=== PATIENT | female | born 1970 | race American Indian/Alaskan Native ===

== ENCOUNTER 2016-11-25 17:15 | Emergency (ER) | payer MEDICAID, OTHER ==
[2016-11-25] MEDS ORDERED: Sodium Chloride 0.9% 2.5 ML Syringe FLUSH PRN (17:26)
[2016-11-25] MEDS ORDERED: Sodium Chloride 0.9% 10 ML Syringe FLUSH PRN (17:26)
[2016-11-25] MEDS ORDERED: Sodium Chloride 0.9% 1,000 ML IV ONE (17:27)
[2016-11-25] MEDS ORDERED: Famotidine 20 MG/2 ML SDV IVPUSH ONE (17:34)
--- NOTE | 2016-11-25 17:38 | EDM.PDOC ---
ED HPI GI/ABDOMINAL - General Chief Complaint: Abdominal Pain Stated Complaint: ABDOMINAL PAIN Time Seen by Provider: 11/25/16 17:19 Source of Information: Reports: Patient History Limitations: Reports: No limitations - History of Present Illness INITIAL COMMENTS - FREE TEXT/NARRATIVE: History of present illness: [] Patient has had 4 days of intermittent abdominal pain in the right upper quadrant that is cramping and nonradiating. Patient started having chills today. She denies any nausea, vomiting, diarrhea or constipation. Patient has not noticed anything that makes pain worse or better such as food. Denies any back pain problems urinating or blood in her urine. Review of systems: As per history of present illness and below otherwise all systems reviewed and negative. Past medical history: As per history of present illness and as reviewed below otherwise noncontributory. Surgical history: As per history of present illness and as reviewed below otherwise noncontributory. Social history: No reported history of drug or alcohol abuse. Family history: As per history of present illness and as reviewed below otherwise noncontributory. Physical exam: General: Well developed, well nourished in NAD HEENT: Atraumatic, normocephalic, pupils reactive, negative for conjunctival pallor or scleral icterus, mucous membranes moist, throat clear, neck supple, nontender, trachea midline. Lungs: Clear to auscultation, breath sounds equal bilaterally, chest nontender. Heart: S1S2, regular, negative for clicks, rubs, or JVD. Abdomen: Soft, nondistended, nontender. Negative for masses or hepatosplenomegaly. Negative for costovertebral tenderness. Pelvis: Stable nontender. Genitourinary: Deferred. Rectal: Deferred. Extremities: Atraumatic, negative for cords or calf pain. Neurovascular unremarkable. Neuro: Awake, alert, oriented. Cranial nerves II through XII unremarkable. Cerebellum unremarkable. Motor and sensory unremarkable throughout. Exam nonfocal. Diagnostics: [] Labs urine: all normal Therapeutics: [] IV hydration and Pepcid IV. Impression: [] GERD Plan: [] Take Prilosec twice a day and followup PMD return here if any symptoms change or worsen the Definitive disposition and diagnosis as appropriate pending reevaluation and review of above. - Related Data Allergies/ADRs: Allergies Allergy/AdvReac Type Severity Reaction Status Date / Time amoxicillin Allergy Rash Verified 11/25/16 17:26 hydrocodone Allergy Rash Verified 11/25/16 17:26 Home Meds: Home Meds . [No Known Home Meds] 11/25/16 [History] ED ROS GENERAL - Review of Systems Review Of Systems: See Below (See history of present illness) ED EXAM, GI/ABD - Physical Exam Exam: See Below (See history of present illness) Course - Vital Signs Last Recorded V/S: Last Vital Signs Temp 37.2 C 11/25/16 18:21 Pulse 81 11/25/16 18:21 Resp 22 H 11/25/16 17:26 BP 136/85 11/25/16 18:21 Pulse Ox 96 11/25/16 17:26 - Orders/Labs/Meds Orders: Active Orders 24 hr Category Date Time Status Abdomen Ltd [US] Stat Exams 11/25/16 18:30 Stop Req Sodium Chloride 0.9% [Saline Flush] Med 11/25/16 17:26 Active 10 ml FLUSH ASDIRECTED PRN Sodium Chloride 0.9% [Saline Flush] Med 11/25/16 17:26 Active 2.5 ml FLUSH ASDIRECTED PRN Peripheral IV Insertion Adult [OM.PC] Stat Oth 11/25/16 17:26 Ordered Medication Orders Sodium Chloride (Saline Flush) 10 ml FLUSH ASDIRECTED PRN PRN Reason: Keep Vein Open Sodium Chloride (Saline Flush) 2.5 ml FLUSH ASDIRECTED PRN PRN Reason: Keep Vein Open Labs: Laboratory Tests 11/25/16 11/25/16 11/25/16 Range/Units 17:45 17:45 18:00 WBC 10.38 (4.0-11.0) K/uL RBC 4.65 (4.30-5.90) M/uL Hgb 13.3 (12.0-16.0) g/dL Hct 39.7 (36.0-46.0) % MCV 85.4 (80.0-98.0) fL MCH 28.6 (27.0-32.0) pg MCHC 33.5 (31.0-37.0) g/dL RDW Std Deviation 43.1 (28.0-62.0) fl RDW Coeff of Omid 14 (11.0-15.0) % Plt Count 348 (150-400) K/uL MPV 10.10 (7.40-12.00) fL Neut % (Auto) 55.9 (48.0-80.0) % Lymph % (Auto) 30.5 (16.0-40.0) % Furn[place] % (Auto) 7.6 (0.0-15.0) % Eos % (Auto) 5.6 (0.0-7.0) % Baso % (Auto) 0.4 (0.0-1.5) % Neut # 5.8 H (1.4-5.7) K/uL Lymph # 3.2 H (0.6-2.4) K/uL Furnas # 0.8 (0.0-0.8) K/uL Eos # 0.6 (0.0-0.7) K/uL Baso # 0.0 (0.0-0.1) K/uL Nucleated RBC % 0.0 /100WBC Nucleated RBCs # 0 K/uL Sodium 139 (136-146) mmol/L Potassium 4.0 (3.5-5.1) mmol/L Chloride 109 (98-110) mmol/L Carbon Dioxide 21 (21-31) mmol/L BUN 13 (6.0-23.0) mg/dL Creatinine 0.7 (0.6-1.5) mg/dL Est Cr Clr Drug Dosing 89.48 mL/min Estimated GFR (MDRD) > 60.0 ml/min Glucose 88 (60-110) mg/dL Calcium 9.0 (8.8-10.8) mg/dL Total Bilirubin 0.5 (0.1-1.5) mg/dL AST 33 (5-40) IU/L ALT 52 (8-54) IU/L Alkaline Phosphatase 83 (40-150) Total Protein 7.5 (6.0-8.0) g/dL Albumin 3.7 (3.5-5.0) g/dL Globulin 3.8 H (2.0-3.5) g/dL Albumin/Globulin Ratio 1.0 L (1.3-2.8) Lipase 51 (7-80) U/L Urine Color Urine Appearance Urine pH (5.0-8.0) Ur Specific [place] (1.001-1.035) Urine Protein (NEGATIVE) mg/dL Urine Glucose (UA) (NEGATIVE) mg/dL Urine Ketones (NEGATIVE) mg/dL Urine Occult Blood (NEGATIVE) Urine Nitrite (NEGATIVE) Urine Bilirubin (NEGATIVE) Urine Urobilinogen (<2.0) EU/dL Ur Leukocyte Esterase (NEGATIVE) Urine RBC (0-2/HPF) Urine WBC (0-5/HPF) Ur Epithelial Cells (NONE-FEW) Urine Bacteria (NEGATIVE) Urine HCG, Qual NEGATIVE (NEGATIVE) 11/25/16 Range/Units 18:00 WBC (4.0-11.0) K/uL RBC (4.30-5.90) M/uL Hgb (12.0-16.0) g/dL Hct (36.0-46.0) % MCV (80.0-98.0) fL MCH (27.0-32.0) pg MCHC (31.0-37.0) g/dL RDW Std Deviation (28.0-62.0) fl RDW Coeff of Omid (11.0-15.0) % Plt Count (150-400) K/uL MPV (7.40-12.00) fL Neut % (Auto) (48.0-80.0) % Lymph % (Auto) (16.0-40.0) % Furn[place] % (Auto) (0.0-15.0) % Eos % (Auto) (0.0-7.0) % Baso % (Auto) (0.0-1.5) % Neut # (1.4-5.7) K/uL Lymph # (0.6-2.4) K/uL Furnas # (0.0-0.8) K/uL Eos # (0.0-0.7) K/uL Baso # (0.0-0.1) K/uL Nucleated RBC % /100WBC Nucleated RBCs # K/uL Sodium (136-146) mmol/L Potassium (3.5-5.1) mmol/L Chloride (98-110) mmol/L Carbon Dioxide (21-31) mmol/L BUN (6.0-23.0) mg/dL Creatinine (0.6-1.5) mg/dL Est Cr Clr Drug Dosing mL/min Estimated GFR (MDRD) ml/min Glucose (60-110) mg/dL Calcium (8.8-10.8) mg/dL Total Bilirubin (0.1-1.5) mg/dL AST (5-40) IU/L ALT (8-54) IU/L Alkaline Phosphatase (40-150) Total Protein (6.0-8.0) g/dL Albumin (3.5-5.0) g/dL Globulin (2.0-3.5) g/dL Albumin/Globulin Ratio (1.3-2.8) Lipase (7-80) U/L Urine Color YELLOW Urine Appearance CLEAR Urine pH 5.5 (5.0-8.0) Ur Specific [place] 1.025 (1.001-1.035) Urine Protein NEGATIVE (NEGATIVE) mg/dL Urine Glucose (UA) NEGATIVE (NEGATIVE) mg/dL Urine Ketones NEGATIVE (NEGATIVE) mg/dL Urine Occult Blood TRACE-INTACT (NEGATIVE) Urine Nitrite NEGATIVE (NEGATIVE) Urine Bilirubin NEGATIVE (NEGATIVE) Urine Urobilinogen 0.2 (<2.0) EU/dL Ur Leukocyte Esterase NEGATIVE (NEGATIVE) Urine RBC 0-2 (0-2/HPF) Urine WBC 2-4 (0-5/HPF) Ur Epithelial Cells FEW (NONE-FEW) Urine Bacteria FEW (NEGATIVE) Urine HCG, Qual (NEGATIVE) Meds: Medications Generic Name Dose Route Start Last Admin Trade Name Frezen PRN Reason Stop Dose Admin Sodium Chloride 10 ml 11/25/16 17:26 Saline Flush FLUSH ASDIRECTED PRN Keep Vein Open Sodium Chloride 2.5 ml 11/25/16 17:26 Saline Flush FLUSH ASDIRECTED PRN Keep Vein Open Discontinued Medications Generic Name Dose Route Start Last Admin Trade Name Aaliyah PRN Reason Stop Dose Admin Famotidine 20 mg 11/25/16 17:34 11/25/16 17:55 Pepcid IVPUSH 11/25/16 17:35 20 mg ONETIME ONE Administration Sodium Chloride 1,000 mls @ 999 mls/hr 11/25/16 17:27 11/25/16 18:12 Normal Saline IV 11/25/16 18:27 999 mls/hr .Bolus ONE Administration Departure - Departure Time of Disposition: 18:37 Disposition: Home, Self-Care 01 Condition: good Clinical Impression: GERD (gastroesophageal reflux disease) Qualifiers: Esophagitis presence: esophagitis presence not specified Qualified Code(s): K21.9 - Gastro-esophageal reflux disease without esophagitis Forms: ED Department Discharge Additional Instructions: The following information is given to patients seen in the emergency department who are being discharged to home. This information is to outline your options for follow-up care. We provide all patients seen in our emergency department with a follow-up referral. The need for follow-up, as well as the timing and circumstances, are variable depending upon the specifics of your emergency department visit. If you don't have a primary care physician on staff, we will provide you with a referral. We always advise you to contact your personal physician following an emergency department visit to inform them of the circumstance of the visit and for follow-up with them and/or the need for any referrals to a consulting specialist. The emergency department will also refer you to a specialist when appropriate. This referral assures that you have the opportunity for follow-up care with a specialist. All of these measure are taken in an effort to provide you with optimal care, which includes your follow-up. Under all circumstances we always encourage you to contact your private physician who remains a resource for coordinating your care. When calling for follow-up care, please make the office aware that this follow-up is from your recent emergency room visit. If for any reason you are refused follow-up, please contact the [facility] Emergency Department at and asked to speak to the emergency department charge nurseOrlando Copeland twice a day [facility] [address] [place] [id number] - My Orders Last 24 Hours: My Active Orders 11/25/16 17:26 Sodium Chloride 0.9% [Saline Flush] 10 ml FLUSH ASDIRECTED PRN Sodium Chloride 0.9% [Saline Flush] 2.5 ml FLUSH ASDIRECTED PRN Peripheral IV Insertion Adult [OM.PC] Stat 11/25/16 18:30 Abdomen Ltd [US] Stat - Assessment/Plan Last 24 Hours: My Active Orders 11/25/16 17:26 Sodium Chloride 0.9% [Saline Flush] 10 ml FLUSH ASDIRECTED PRN Sodium Chloride 0.9% [Saline Flush] 2.5 ml FLUSH ASDIRECTED PRN Peripheral IV Insertion Adult [OM.PC] Stat 11/25/16 18:30 Abdomen Ltd [US] Stat
[2016-11-25 18:32] LABS: CHLORIDE,CL 109 mmol/L (98-110); SODIUM,NA 139 mmol/L (136-146)
[2016-11-25 19:03] VITALS: BP 134/70
== END 2016-11-25 18:59 | disposition home or self-care (01) ==
LOC: MW.ED 17:15
DX: K21.9 Gastro-esophageal reflux disease without esophagitis (principal); Z88.0 Allergy status to penicillin; Z88.5 Allergy status to narcotic agent
CPT/HCPCS: 36415; 80053; 81001; 81025; 83690; 85025; 96361; 96374; 99284; J7040

== ENCOUNTER 2018-04-28 15:04 | Emergency (ER) | payer MEDICAID, OTHER ==
--- NOTE | 2018-04-28 15:40 | EDM.PDOC ---
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 Past medical history: As per history of present illness and as reviewed below otherwise noncontributory. Surgical history: As per history of present illness and as reviewed below otherwise noncontributory. Social history: No reported history of drug or alcohol abuse. Family history: As per history of present illness and as reviewed below otherwise noncontributory. Physical exam: HEENT: Atraumatic, normocephalic, pupils reactive, negative for conjunctival pallor or scleral icterus, mucous membranes moist, throat clear, neck supple, nontender, trachea midline. Lungs: Clear to auscultation, breath sounds equal bilaterally, chest nontender. Heart: S1S2, regular, negative for clicks, rubs, or JVD. Abdomen: Soft, nondistended, nontender. Negative for masses or hepatosplenomegaly. Negative for costovertebral tenderness. Pelvis: Stable nontender. Genitourinary: Deferred. Rectal: Deferred. Extremities: Atraumatic, negative for cords or calf pain. Neurovascular unremarkable. Neuro: Awake, alert, oriented. Cranial nerves II through XII unremarkable. Cerebellum unremarkable. Motor and sensory unremarkable throughout. Exam nonfocal. Diagnostics: []Clinical Therapeutics: []Splint rest ice ibuprofen Impression: [] carpal tunnel syndrome on the left Definitive disposition and diagnosis as appropriate pending reevaluation and review of above. left elbow, left lower leg Pain Score (Numeric/FACES): 6 - Related Data Allergies Allergy/AdvReac Type Severity Reaction Status Date / Time amoxicillin Allergy Rash Verified 04/28/18 15:22 hydrocodone Allergy Rash Verified 04/28/18 15:22 Home Meds: Home Meds . 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: - Infectious Disease History Infectious Disease History: Reports: Hepatitis C - Past Surgical History HEENT Surgical History: Reports: Tonsillectomy GI Surgical History: Reports: Other (See Below) Female Surgical History: Reports: Hysterectomy Social & Family History - Family History Family Medical History: Noncontributory Musculoskeletal: Reports: RA - Tobacco Use Smoking Status *Q: Current Every Day Smoker Years of Tobacco use: 15 Packs/Tins Daily: 1 - Caffeine Use Caffeine Use: Reports: Coffee, Soda - Recreational Drug Use Recreational Drug Use: Yes Drug Use in Last 12 Months: Yes Recreational Drug Type: Reports: Marijuana/Hashish Recreational Drug Use Frequency: Monthly Review of Systems - Review of Systems Review Of Systems: See Below ED EXAM, GENERAL - Physical Exam Exam: See Below Course - Vital Signs Last Recorded V/S: Last Vital Signs Temp 97.1 F 04/28/18 15:19 Pulse 79 04/28/18 15:19 Resp 16 04/28/18 15:19 BP 151/95 H 04/28/18 15:19 Pulse Ox 96 04/28/18 15:19 Departure - Departure Time of Disposition: 15:38 Disposition: Home, Self-Care 01 Condition: Good Clinical Impression: Carpal tunnel syndrome - Discharge Information Referrals: PCP,None [Primary Care Provider] - Additional Instructions: Splint Medication as prescribed Return if symptoms persist or worsen Follow-up with Anisha amaral md if symptoms continue despite treatment [facility] - Plastic Surgery [address], [address] [place] [address] The following information is given to patients seen in the emergency department who are being discharged to home. This information is to outline your options for follow-up care. We provide all patients seen in our emergency department with a follow-up referral. The need for follow-up, as well as the timing and circumstances, are variable depending upon the specifics of your emergency department visit. If you don't have a primary care physician on staff, we will provide you with a referral. We always advise you to contact your personal physician following an emergency department visit to inform them of the circumstance of the visit and for follow-up with them and/or the need for any referrals to a consulting specialist. The emergency department will also refer you to a specialist when appropriate. This referral assures that you have the opportunity for follow-up care with a specialist. All of these measure are taken in an effort to provide you with optimal care, which includes your follow-up. Under all circumstances we always encourage you to contact your private physician who remains a resource for coordinating your care. When calling for follow-up care, please make the office aware that this follow-up is from your recent emergency room visit. If for any reason you are refused follow-up, please contact the [facility] emergency department at and asked to speak to the emergency department charge nurse.
[2018-04-28 16:37] VITALS: BP 143/88
== END 2018-04-28 16:30 | disposition home or self-care (01) ==
LOC: MW.ED 15:04
DX: G56.02 Carpal tunnel syndrome, left upper limb (principal)
CPT/HCPCS: 99283

== ENCOUNTER 2019-06-21 12:20 | Observation (INO) | payer MEDICAID, OTHER ==
[2019-06-21] MEDS ORDERED: Sodium Chloride 0.9% 2.5 ML Syringe FLUSH PRN (12:23)
[2019-06-21] MEDS ORDERED: Sodium Chloride 0.9% 10 ML Syringe FLUSH PRN (12:23)
[2019-06-21] MEDS ORDERED: Aspirin 81 MG Tab.Chew PO ONE (12:23)
[2019-06-21] MEDS ORDERED: Sodium Chloride 0.9% 1,000 ML IV ONE (12:31)
--- NOTE | 2019-06-21 12:37 | EDM.PDOC ---
ED HPI GENERAL MEDICAL PROBLEM - General Chief Complaint: Chest Pain Stated Complaint: CHEST PAIN Time Seen by Provider: 06/21/19 12:24 Source of Information: Reports: Patient History Limitations: Reports: No Limitations - History of Present Illness INITIAL COMMENTS - FREE TEXT/NARRATIVE: HISTORY AND PHYSICAL: History of present illness: Patient is a 48-year-old female presenting along to the emergency room for chief complaint chest pain. Patient states that she's had chest pain for the "past couple days", however she states "last night it started getting worse". She states she is experiencing "chest pain that radiates into my right shoulder and right jaw". She rates her pain at a 6 out of 10 describing it as "throbbing ". She states she is also been having "sweats, and faster heart beat". She states she does have tingling in her right big toe and subjective fever, chills. Patient denies any headache, change in vision, syncope or near syncope. Denies any chest pain, back pain, shortness of breath or cough. Denies any abdominal pain, nausea, vomiting, diarrhea, constipation or dysuria. Has not noted any blood in urine or stool. Patient has been eating and drinking appropriately. Patient does not have any personal history of heart disease, although states it runs in her family. She states that her biological sister did of a heart attack at the age of 34. She is a pack per day smoker over the past +20 years. Review of systems: As per history of present illness and below otherwise all systems reviewed and negative. Past medical history: As per history of present illness and as reviewed below otherwise noncontributory. Surgical history: As per history of present illness and as reviewed below otherwise noncontributory. Social history: See social history for further information Family history: As per history of present illness and as reviewed below otherwise noncontributory. Physical exam: General: Well-developed and well-nourished 48-year-old female. Alert and oriented. Nontoxic appearing and in no acute distress. No signs have been reviewed by me. HEENT: Atraumatic, normocephalic, pupils equal and reactive bilaterally, negative for conjunctival pallor or scleral icterus, mucous membranes moist, TMs normal bilaterally, throat clear, neck supple, nontender, trachea midline. No drooling or trismus noted. No meningeal signs. No hot potato voice noted. Lungs: Clear to auscultation, breath sounds equal bilaterally, chest nontender. Heart: S1S2, regular rate and rhythm without overt murmur Abdomen: Soft, nondistended, nontender. Negative for masses or hepatosplenomegaly. Negative for costovertebral tenderness. Pelvis: Stable nontender. Skin: Intact, warm, dry. No lesions or rashes noted. Extremities: Atraumatic, moves all extremities per self without difficulty or deficits, negative for cords or calf pain. Neurovascular unremarkable. Neuro: Awake, alert, oriented. Cranial nerves II through XII unremarkable. Cerebellum unremarkable. Motor and sensory unremarkable throughout. Exam nonfocal. Notes: Lab work is unremarkable. No significant findings on EKG or chest x-ray. Patient did get relief with the nitroglycerin, although this did drop her pressure. She received IV fluids. Vital signs remain stable. Due to her to pull risk factors did offer her admission. She states she would like to stay for observation. Dr. Lujan was consulted on this case is agreeable as well. Diagnostics: CBC, CMP, troponin, EKG, chest x-ray, TSH Therapeutics: IV fluid, aspirin, nitroglycerin, morphine Impression: Chest pain rule out [facility] Plan: Observation admission with telemetry Definitive disposition and diagnosis as appropriate pending reevaluation and review of above. right neck Pain Score (Numeric/FACES): 5 - Related Data Allergies Allergy/AdvReac Type Severity Reaction Status Date / Time amoxicillin Allergy Rash Verified 06/21/19 12:22 hydrocodone Allergy Rash Verified 06/21/19 12:22 Home Meds: Home Meds . 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: Neurological History: Reports: Seizure Other Neuro History: PT WITH HISTORY OF EPILEPSY BUT TOOK SELF OFF MEDS - Infectious Disease History Infectious Disease History: Reports: Hepatitis C - Past Surgical History HEENT Surgical History: Reports: Tonsillectomy GI Surgical History: Reports: Other (See Below) Female Surgical History: Reports: Hysterectomy Social & Family History - Family History Family Medical History: Noncontributory Musculoskeletal: Reports: RA - Tobacco Use Smoking Status *Q: Current Every Day Smoker Years of Tobacco use: 26 Packs/Tins Daily: 1.5 - Caffeine Use Caffeine Use: Reports: Coffee, Soda - Recreational Drug Use Recreational Drug Use: No ED ROS GENERAL - Review of Systems Review Of Systems: ROS reveals no pertinent complaints other than HPI. ED EXAM, GENERAL - Physical Exam Exam: See Below (See dictation) Course - Vital Signs Last Recorded V/S: Last Vital Signs Temp 96.2 F 06/21/19 12:24 Pulse 84 06/21/19 13:43 Resp 18 06/21/19 13:43 BP 112/76 06/21/19 13:43 Pulse Ox 98 06/21/19 13:43 - Orders/Labs/Meds Orders: Active Orders 24 hr Category Date Time Status EKG Documentation Completion [RC] STAT Care 06/21/19 12:23 Active Nitroglycerin [Nitrostat] Med 06/21/19 12:31 Active 0.4 mg SL Q5M PRN Sodium Chloride 0.9% [Normal Saline] 1,000 ml Med 06/21/19 12:31 Active IV STAT Sodium Chloride 0.9% [Saline Flush] Med 06/21/19 12:23 Active 10 ml FLUSH ASDIRECTED PRN Sodium Chloride 0.9% [Saline Flush] Med 06/21/19 12:23 Active 2.5 ml FLUSH ASDIRECTED PRN Saline Lock Insert [OM.PC] Stat Oth 06/21/19 12:23 Ordered Medication Orders Sodium Chloride (Normal Saline) 1,000 mls @ 125 mls/hr IV STAT ONE Stop: 06/21/19 20:30 Last Admin: 06/21/19 12:49 Dose: 125 mls/hr Nitroglycerin (Nitrostat) 0.4 mg SL Q5M PRN PRN Reason: Chest Pain Last Admin: 06/21/19 12:53 Dose: 0.4 mg Admin: 06/21/19 12:48 Dose: 0.4 mg Sodium Chloride (Saline Flush) 10 ml FLUSH ASDIRECTED PRN PRN Reason: Keep Vein Open Last Admin: 06/21/19 12:47 Dose: 10 ml Sodium Chloride (Saline Flush) 2.5 ml FLUSH ASDIRECTED PRN PRN Reason: Keep Vein Open Last Admin: 06/21/19 12:47 Dose: 2.5 ml Labs: Laboratory Tests 06/21/19 06/21/19 Range/Units 12:20 12:20 WBC 7.43 (4.0-11.0) K/uL RBC 4.99 (4.30-5.90) M/uL Hgb 14.8 (12.0-16.0) g/dL Hct 44.0 (36.0-46.0) % MCV 88.2 (80.0-98.0) fL MCH 29.7 (27.0-32.0) pg MCHC 33.6 (31.0-37.0) g/dL RDW Std Deviation 43.0 (28.0-62.0) fl RDW Coeff of Omid 13 (11.0-15.0) % Plt Count 345 (150-400) K/uL MPV 10.30 (7.40-12.00) fL Neut % (Auto) 49.4 (48.0-80.0) % Lymph % (Auto) 34.7 (16.0-40.0) % Marshall % (Auto) 10.1 (0.0-15.0) % Eos % (Auto) 5.5 (0.0-7.0) % Baso % (Auto) 0.3 (0.0-1.5) % Neut # (Auto) 3.7 (1.4-5.7) K/uL Lymph # (Auto) 2.6 H (0.6-2.4) K/uL Marshall # (Auto) 0.8 (0.0-0.8) K/uL Eos # (Auto) 0.4 (0.0-0.7) K/uL Baso # (Auto) 0.0 (0.0-0.1) K/uL Nucleated RBC % 0.0 /100WBC Nucleated RBCs # 0 K/uL Sodium 138 (136-145) mmol/L Potassium 4.3 (3.5-5.1) mmol/L Chloride 102 (98-107) mmol/L Carbon Dioxide 26.0 (21.0-32.0) mmol/L BUN 19 H (7.0-18.0) mg/dL Creatinine 0.7 (0.6-1.0) mg/dL Est Cr Clr Drug Dosing 86.72 mL/min Estimated GFR (MDRD) > 60.0 ml/min Glucose 129 H (74-106) mg/dL Calcium 9.0 (8.5-10.1) mg/dL Total Bilirubin 0.4 (0.2-1.0) mg/dL AST 25 (15-37) IU/L ALT 53 (14-63) IU/L Alkaline Phosphatase 90 (46-116) U/L Troponin I < 0.050 (0.000-0.056) ng/mL Total Protein 7.9 (6.4-8.2) g/dL Albumin 3.6 (3.4-5.0) g/dL Globulin 4.3 H (2.6-4.0) g/dL Albumin/Globulin Ratio 0.8 L (0.9-1.6) TSH 3rd Generation 2.50 (0.36-3.74) uIU/mL Meds: Medications Generic Name Dose Route Start Last Admin Trade Name Freq PRN Reason Stop Dose Admin Sodium Chloride 1,000 mls @ 125 mls/hr 06/21/19 12:31 06/21/19 12:49 Normal Saline IV 06/21/19 20:30 125 mls/hr STAT ONE Administration Nitroglycerin 0.4 mg 06/21/19 12:31 06/21/19 12:53 Nitrostat SL 0.4 mg Q5M PRN Administration Chest Pain Sodium Chloride 10 ml 06/21/19 12:23 06/21/19 12:47 Saline Flush FLUSH 10 ml ASDIRECTED PRN Administration Keep Vein Open Sodium Chloride 2.5 ml 06/21/19 12:23 06/21/19 12:47 Saline Flush FLUSH 2.5 ml ASDIRECTED PRN Administration Keep Vein Open Discontinued Medications Generic Name Dose Route Start Last Admin Trade Name Freq PRN Reason Stop Dose Admin Aspirin 324 mg 06/21/19 12:23 06/21/19 12:46 Aspirin PO 06/21/19 12:24 324 mg ONETIME ONE Administration Ketorolac Tromethamine 30 mg 06/21/19 13:02 06/21/19 13:39 Toradol IVPUSH 06/21/19 13:03 30 mg ONETIME ONE Administration Departure - Departure Time of Disposition: 13:49 Disposition: Refer to Observation Clinical Impression: Chest pain, rule out acute myocardial infarction Forms: ED Department Discharge - My Orders Last 24 Hours: My Active Orders 06/21/19 12:23 EKG Documentation Completion [RC] STAT Sodium Chloride 0.9% [Saline Flush] 10 ml FLUSH ASDIRECTED PRN Sodium Chloride 0.9% [Saline Flush] 2.5 ml FLUSH ASDIRECTED PRN Saline Lock Insert [OM.PC] Stat 06/21/19 12:31 Nitroglycerin [Nitrostat] 0.4 mg SL Q5M PRN Sodium Chloride 0.9% [Normal Saline] 1,000 ml IV STAT - Assessment/Plan Last 24 Hours: My Active Orders 06/21/19 12:23 EKG Documentation Completion [RC] STAT Sodium Chloride 0.9% [Saline Flush] 10 ml FLUSH ASDIRECTED PRN Sodium Chloride 0.9% [Saline Flush] 2.5 ml FLUSH ASDIRECTED PRN Saline Lock Insert [OM.PC] Stat 06/21/19 12:31 Nitroglycerin [Nitrostat] 0.4 mg SL Q5M PRN Sodium Chloride 0.9% [Normal Saline] 1,000 ml IV STAT
[2019-06-21] MEDS: Nitroglycerin 0.4 MG Tab.SL SL PRN ×2 (12:48→12:53)
[2019-06-21] MEDS ORDERED: Ketorolac 30 MG/ML SDV IVPUSH ONE (13:02)
[2019-06-21 13:35] LABS: BLOOD UREA NITROGEN,BUN 19 mg/dL (7.0-18.0); CHLORIDE,CL 102 mmol/L (98-107); GLUCOSE RANDOM 129 mg/dL (74-106); POTASSIUM,K 4.3 mmol/L (3.5-5.1); SODIUM,NA 138 mmol/L (136-145)
--- NOTE | 2019-06-21 13:43 | CR ---
HISTORY: Chest pain COMPARISON: None available FINDINGS: A portable erect AP view of the chest was obtained at 1323 hours. The lungs are clear. No focal or diffuse infiltrates are present. The heart is normal in size. The mediastinum is normal in appearance. The osseous structures are normal in appearance for the patient`s age. IMPRESSION: Normal portable chest single view. Dictated by Mele Hurley MD @ Jun 21 2019 1:39PM Signed by Dr. Mele Hurley @ Jun 21 2019 1:40PM
[2019-06-21] MEDS ORDERED: Morphine 2 MG/ML Syringe IVPUSH ONE (13:50)
[2019-06-21] MEDS ORDERED: Alum Hydrox/Mag Hydrox/Simeth 15 ML, Lidocaine 2% 5 ML PO ONE ×2 (14:06)
[2019-06-21] MEDS ORDERED: Pantoprazole 40 MG in Sodium Chloride 0.9% 10 ML IV ONE (14:06)
--- NOTE | 2019-06-21 14:10 | PCM.HP.2 ---
<Inge Delaney M - Last Filed: 06/21/19 15:06> H&P History of Present Illness - General Date of Service: 06/21/19 Admit Problem/Dx: Admission Diagnosis/Problem Admission Diagnosis/Problem Chest pain, rule out acute myocardial infarction Source of Information: Patient History Limitations: Reports: No Limitations - History of Present Illness Initial Comments - Free Text/Narative: This 48 year old female with pmh of hepatitis C, hx of recreational drug abuse, and epilepsy presented to the ED with concerns of chest pain. She reports this pain started a couple days ago. She reports the pain is in her R shoulder, L shoulder and upper back and neck. She reports it is throbbing in nature, worsens with movement and deep breath. She denies nausea or vomiting. No palpitations. She was at rest when the pain started initially, and worsens with activity. She reports skin rash in between her breasts, that she has put calamine on which seems to helps. She reports hot flashes that start abruptly and go away quickly. She denies abdominal pain. No urinary concerns or bowel concerns. No focal neurological deficits. She reports knee pain as well, especially with walking. She reports she has been cleaning carpets recently. She denies recreational drug use now. No alcohol use. Smokes 1 1/2 ppd. She reports a sister of CAD at age 37. She reports not taking any medication for seizures for 20+ years and no reoccurrence of seizures. In the ED labwork WNL. Glucose mildly elevated, Troponin negative. EKG SR with no acute ischemic changes. CXR negative. She was treated with Nitro x 2 in ED, which helped pain the hypotension was noted. She was given NS x 1 L along with ASA. She will be admitted for atypical chest pain. PCP, Dr Corey. right neck Pain Score (Numeric/FACES): 5 - Related Data Allergies/Adverse Reactions: Allergies Allergy/AdvReac Type Severity Reaction Status Date / Time amoxicillin Allergy Rash Verified 06/21/19 15:10 hydrocodone Allergy Rash Verified 06/21/19 15:10 Latex, Natural Rubber Allergy Rash Verified 06/21/19 15:10 Home Medications: Home Meds . [No Known Home Meds] 11/25/16 [History] Past Medical History - Past Health History Medical/Surgical History: Denies Medical/Surgical History Cardiovascular History: Reports: None. Denies: Afib, Blood Clots/VTE/DVT, CAD, High Cholesterol, Hypertension Respiratory History: Reports: None. Denies: Asthma, COPD, SOB Gastrointestinal History: Reports: None. 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 Denies: Diabetes, Type II, Hypothyroidism - Infectious Disease History Infectious Disease History: Reports: Hepatitis C - Past Surgical History HEENT Surgical History: Reports: Tonsillectomy Female Surgical History: Reports: Hysterectomy Social & Family History - Family History Family Medical History: Noncontributory Musculoskeletal: Reports: RA - Tobacco Use Smoking Status *Q: Current Every Day Smoker Years of Tobacco use: 26 Packs/Tins Daily: 1.5 - Caffeine Use Caffeine Use: Reports: Coffee, Soda - Alcohol Use Alcohol Use History: No - Recreational Drug Use Recreational Drug Use: No Drug Use in Last 12 Months: No - Living Situation & Occupation Living situation: Reports: Single H&P Review of Systems - Review of Systems: Review Of Systems: See Below General: Reports: No Symptoms HEENT: Reports: No Symptoms. Denies: Headaches, Sinus Congestion, Sore Throat Pulmonary: Denies: Shortness of Breath, Pleuritic Chest Pain, Cough, Sputum Cardiovascular: Reports: Chest Pain (R shoulder and L shoulder) Gastrointestinal: Reports: No Symptoms. Denies: Abdominal Pain, Nausea, Vomiting Genitourinary: Reports: No Symptoms. Denies: Dysuria, Frequency, Burning Musculoskeletal: Reports: No Symptoms Skin: Reports: No Symptoms Psychiatric: Reports: Anxiety Neurological: Reports: No Symptoms Hematologic/Lymphatic: Reports: No Symptoms Immunologic: Reports: No Symptoms Exam - Exam Exam: See Below - Vital Signs Vital Signs: Last Vital Signs Temp 96.2 F 06/21/19 12:24 Pulse 84 06/21/19 13:43 Resp 18 06/21/19 13:43 BP 112/76 06/21/19 13:43 Pulse Ox 98 06/21/19 13:43 Weight: 68.039 kg - Exam General: Alert, Oriented, Cooperative HEENT: Conjunctiva Clear, Mucosa Moist & [place], Posterior Pharynx Clear Neck: Supple, Trachea Midline Lungs: Clear to Auscultation, Normal Respiratory Effort Cardiovascular: Regular Rate, Regular Rhythm GI/Abdominal Exam: Normal Bowel Sounds, Soft, Non-Tender Back Exam: Normal Inspection, Full Range of Motion, Other (tenderness noted to left and right trapezius muscles, reports this reproduces pain) Extremities: Normal Inspection, Normal Range of Motion, Non-Tender, No Pedal Edema Skin: Warm, Dry, Rash (in between breast, 3-4 small macules noted, with small abrasions from scratching.) Neuro Extensive - Mental Status: Alert, Oriented x3 Neuro Extensive - Motor, Sensory, Reflexes: CN II-XII Intact Psychiatric: Alert, Normal Affect, Normal Mood, Anxious - Patient Data Lab Results Last 24 hrs: Laboratory Results - last 24 hr 06/21/19 06/21/19 Range/Units 12:20 12:20 WBC 7.43 (4.0-11.0) K/uL RBC 4.99 (4.30-5.90) M/uL Hgb 14.8 (12.0-16.0) g/dL Hct 44.0 (36.0-46.0) % MCV 88.2 (80.0-98.0) fL MCH 29.7 (27.0-32.0) pg MCHC 33.6 (31.0-37.0) g/dL RDW Std Deviation 43.0 (28.0-62.0) fl RDW Coeff of Omid 13 (11.0-15.0) % Plt Count 345 (150-400) K/uL MPV 10.30 (7.40-12.00) fL Neut % (Auto) 49.4 (48.0-80.0) % Lymph % (Auto) 34.7 (16.0-40.0) % [place] % (Auto) 10.1 (0.0-15.0) % Eos % (Auto) 5.5 (0.0-7.0) % Baso % (Auto) 0.3 (0.0-1.5) % Neut # (Auto) 3.7 (1.4-5.7) K/uL Lymph # (Auto) 2.6 H (0.6-2.4) K/uL [place] # (Auto) 0.8 (0.0-0.8) K/uL Eos # (Auto) 0.4 (0.0-0.7) K/uL Baso # (Auto) 0.0 (0.0-0.1) K/uL Nucleated RBC % 0.0 /100WBC Nucleated RBCs # 0 K/uL Sodium 138 (136-145) mmol/L Potassium 4.3 (3.5-5.1) mmol/L Chloride 102 (98-107) mmol/L Carbon Dioxide 26.0 (21.0-32.0) mmol/L BUN 19 H (7.0-18.0) mg/dL Creatinine 0.7 (0.6-1.0) mg/dL Est Cr Clr Drug Dosing 86.72 mL/min Estimated GFR (MDRD) > 60.0 ml/min Glucose 129 H (74-106) mg/dL Calcium 9.0 (8.5-10.1) mg/dL Total Bilirubin 0.4 (0.2-1.0) mg/dL AST 25 (15-37) IU/L ALT 53 (14-63) IU/L Alkaline Phosphatase 90 (46-116) U/L Troponin I < 0.050 (0.000-0.056) ng/mL Total Protein 7.9 (6.4-8.2) g/dL Albumin 3.6 (3.4-5.0) g/dL Globulin 4.3 H (2.6-4.0) g/dL Albumin/Globulin Ratio 0.8 L (0.9-1.6) TSH 3rd Generation 2.50 (0.36-3.74) uIU/mL Result Diagrams: 06/21/19 12:20 06/21/19 12:20 EKG INTERPRETATION EKG Date: 06/21/19 Rhythm: NSR P-Wave: Present QRS: Normal ST-T: Normal QT: Normal - Problem List (1) History of epilepsy SNOMED Code(s): 991457128 ICD Code: Z86.69 - PERSONAL HISTORY OF DIS OF THE NERVOUS SYS AND SENSE ORGANS Status: Acute Current Visit: Yes (2) Family history of early CAD SNOMED Code(s): 521584493 ICD Code: Z82.49 - FAMILY HX OF ISCHEM HEART DIS AND OTH DIS OF THE CIRC SYS Status: Acute Current Visit: Yes (3) Tobacco abuse SNOMED Code(s): 280002671 ICD Code: Z72.0 - TOBACCO USE Status: Acute Current Visit: Yes (4) Tobacco abuse counseling SNOMED Code(s): 845718215, 567728330, 629306310 ICD Code: Z71.6 - TOBACCO ABUSE COUNSELING Status: Acute Current Visit: Yes (5) Chest pain, rule out acute myocardial infarction SNOMED Code(s): 11878198 ICD Code: R07.9 - CHEST PAIN, UNSPECIFIED Status: Acute Current Visit: Yes Problem List Initiated/Reviewed/Updated: Yes Orders Last 24hrs: Active Orders 24 hr Category Date Time Status Patient Status [ADT] Stat ADT 06/21/19 13:50 Active Ambulate [RC] ASDIRECTED Care 06/21/19 14:06 Active EKG Documentation Completion [RC] STAT Care 06/21/19 12:23 Active Intake and Output [RC] QSHIFT Care 06/21/19 14:07 Active Oxygen Therapy [RC] PRN Care 06/21/19 14:07 Active Telemetry Monitoring [Cardiac Monitoring] [RC] . Care 06/21/19 14:06 Active DIRECTED Up ad Edna [RC] ASDIRECTED Care 06/21/19 14:06 Active VTE/DVT Education [RC] PER UNIT ROUTINE Care 06/21/19 14:07 Active Vital Signs [RC] Q4H Care 06/21/19 14:07 Active Heart Healthy Diet [DIET] Diet 06/21/19 Lunch Active GLYCOSYLATED HEMOGLOBIN,HGBA1C [CHEM] Routine Lab 06/21/19 14:06 Ordered LIPID PANEL [CHEM] AM Lab 06/22/19 05:11 Ordered TROPONIN I [CHEM] Q6H Lab 06/21/19 18:15 Ordered TROPONIN I [CHEM] Q6H Lab 06/22/19 00:15 Ordered Alum Hydrox/Mag Hydrox/Simeth [Mag-Al Plus] 15 ml Med 06/21/19 14:06 Ordered Lidocaine 2% [Xylocaine 2% Viscous] 5 ml PO ONETIME Enoxaparin [Lovenox] Med 06/21/19 14:15 Ordered 40 mg SUBCUT Q24H Nitroglycerin [Nitrostat] Med 06/21/19 12:31 Active 0.4 mg SL Q5M PRN Pantoprazole [ProTONIX IV] 40 mg Med 06/21/19 14:06 Ordered Sodium Chloride 0.9% [Normal Saline] 10 ml IV ONETIME Sodium Chloride 0.9% [Normal Saline] 1,000 ml Med 06/21/19 12:31 Active IV STAT Sodium Chloride 0.9% [Saline Flush] Med 06/21/19 12:23 Active 10 ml FLUSH ASDIRECTED PRN Sodium Chloride 0.9% [Saline Flush] Med 06/21/19 12:23 Active 2.5 ml FLUSH ASDIRECTED PRN Saline Lock Insert [OM.PC] Stat Oth 06/21/19 12:23 Ordered Resuscitation Status Routine Resus Stat 06/21/19 14:06 Ordered Medication Orders Enoxaparin Sodium (Lovenox) 40 mg SUBCUT Q24H ILA Sodium Chloride (Normal Saline) 1,000 mls @ 125 mls/hr IV STAT ONE Stop: 06/21/19 20:30 Last Admin: 06/21/19 12:49 Dose: 125 mls/hr Nitroglycerin (Nitrostat) 0.4 mg SL Q5M PRN PRN Reason: Chest Pain Last Admin: 06/21/19 12:53 Dose: 0.4 mg Admin: 06/21/19 12:48 Dose: 0.4 mg Sodium Chloride (Saline Flush) 10 ml FLUSH ASDIRECTED PRN PRN Reason: Keep Vein Open Last Admin: 06/21/19 12:47 Dose: 10 ml Sodium Chloride (Saline Flush) 2.5 ml FLUSH ASDIRECTED PRN PRN Reason: Keep Vein Open Last Admin: 06/21/19 12:47 Dose: 2.5 ml Assessment/Plan Comment:: This 48 year old female admitted with atypical chest pain rule out ACS 1. Chest pain: Does not appear cardiac in nature, pain reproducible with palpation to chest and upper back. Due to tobacco use, gender, and family hx of early CAD will trend troponins and monitor on telemetry. A1c 5.5, lipid panel pending in am. Will arrange outpatient stress test to complete workup. Will trial GI cocktail and Protonix as well due to history of GERD. Counseled on smoking cessation for less than 5 minutes, she is not ready to quit. 2. HTN: BP elevated on arrival, improved with Nitro as did pain. reports BP has been elevating recently. Monitor, may consider starting thiazide if BP remains elevated during stay. VTE prophylaxis: Lovenox. Dispo: 1 day. Patient comes in with a multitude of complaints, such as frequent hot flashes at home and thinking she is starting menopause. She was counseled that this admission is more for ruling out GA due to chest pain she experienced. She will be made follow up appointment with PCP so she can discuss concerns with her as outpatient. We will arrange outpatient stress test as well. - Mortality Measure Prognosis:: Good <Leeroy Lujan - Last Filed: 06/21/19 18:14> H&P History of Present Illness - General Admit Problem/Dx: Admission Diagnosis/Problem Admission Diagnosis/Problem Chest pain, rule out acute myocardial infarction I have seen and examined the patient independently of Gabbie Delaney CNP. I have discussed the case with her. I have reviewed and agree with the assessment and plan as outlined very her for this patient. Please see orders. Exam - Vital Signs Vital Signs: Last Vital Signs Temp 36.1 C 06/21/19 17:15 Pulse 85 06/21/19 17:15 Resp 16 06/21/19 17:15 BP 137/58 L 06/21/19 17:15 Pulse Ox 96 06/21/19 17:15 - Patient Data Lab Results Last 24 hrs: Laboratory Results - last 24 hr 06/21/19 06/21/19 06/21/19 Range/Units 12:20 12:20 12:20 WBC 7.43 (4.0-11.0) K/uL RBC 4.99 (4.30-5.90) M/uL Hgb 14.8 (12.0-16.0) g/dL Hct 44.0 (36.0-46.0) % MCV 88.2 (80.0-98.0) fL MCH 29.7 (27.0-32.0) pg MCHC 33.6 (31.0-37.0) g/dL RDW Std Deviation 43.0 (28.0-62.0) fl RDW Coeff of Omid 13 (11.0-15.0) % Plt Count 345 (150-400) K/uL MPV 10.30 (7.40-12.00) fL Neut % (Auto) 49.4 (48.0-80.0) % Lymph % (Auto) 34.7 (16.0-40.0) % [place] % (Auto) 10.1 (0.0-15.0) % Eos % (Auto) 5.5 (0.0-7.0) % Baso % (Auto) 0.3 (0.0-1.5) % Neut # (Auto) 3.7 (1.4-5.7) K/uL Lymph # (Auto) 2.6 H (0.6-2.4) K/uL [place] # (Auto) 0.8 (0.0-0.8) K/uL Eos # (Auto) 0.4 (0.0-0.7) K/uL Baso # (Auto) 0.0 (0.0-0.1) K/uL Nucleated RBC % 0.0 /100WBC Nucleated RBCs # 0 K/uL Sodium 138 (136-145) mmol/L Potassium 4.3 (3.5-5.1) mmol/L Chloride 102 (98-107) mmol/L Carbon Dioxide 26.0 (21.0-32.0) mmol/L BUN 19 H (7.0-18.0) mg/dL Creatinine 0.7 (0.6-1.0) mg/dL Est Cr Clr Drug Dosing 86.72 mL/min Estimated GFR (MDRD) > 60.0 ml/min Glucose 129 H (74-106) mg/dL Hemoglobin A1c 5.5 (4.5-6.2) % Calcium 9.0 (8.5-10.1) mg/dL Total Bilirubin 0.4 (0.2-1.0) mg/dL AST 25 (15-37) IU/L ALT 53 (14-63) IU/L Alkaline Phosphatase 90 (46-116) U/L Troponin I < 0.050 (0.000-0.056) ng/mL Total Protein 7.9 (6.4-8.2) g/dL Albumin 3.6 (3.4-5.0) g/dL Globulin 4.3 H (2.6-4.0) g/dL Albumin/Globulin Ratio 0.8 L (0.9-1.6) TSH 3rd Generation 2.50 (0.36-3.74) uIU/mL Result Diagrams: 06/21/19 12:20 06/21/19 12:20 Orders Last 24hrs: Active Orders 24 hr Category Date Time Status Patient Status [ADT] Stat ADT 06/21/19 13:50 Active Ambulate [RC] ASDIRECTED Care 06/21/19 14:06 Active Influenza Vaccine Charge [RC] .DISCHARGE Care 06/21/19 15:57 Active Intake and Output [RC] Q12H Care 06/21/19 14:07 Active Oxygen Therapy [RC] PRN Care 06/21/19 14:07 Active Telemetry Monitoring [Cardiac Monitoring] [RC] . Care 06/21/19 14:06 Active DIRECTED Up ad Edna [RC] ASDIRECTED Care 06/21/19 14:06 Active VTE/DVT Education [RC] PER UNIT ROUTINE Care 06/21/19 14:07 Active Vital Signs [RC] Q4H Care 06/21/19 14:07 Active Heart Healthy Diet [DIET] Diet 06/21/19 Lunch Active LIPID PANEL [CHEM] AM Lab 06/22/19 05:11 Ordered TROPONIN I [CHEM] Q6H Lab 06/21/19 18:15 Ordered TROPONIN I [CHEM] Q6H Lab 06/22/19 00:15 Ordered Enoxaparin [Lovenox] Med 06/21/19 14:15 Active 40 mg SUBCUT Q24H Nitroglycerin [Nitrostat] Med 06/21/19 12:31 Active 0.4 mg SL Q5M PRN Nystatin [Nystatin Crm] Med 06/21/19 15:21 Active See Dose Instructions TOP TID Sodium Chloride 0.9% [Saline Flush] Med 06/21/19 12:23 Active 10 ml FLUSH ASDIRECTED PRN Sodium Chloride 0.9% [Saline Flush] Med 06/21/19 12:23 Active 2.5 ml FLUSH ASDIRECTED PRN Saline Lock Insert [OM.PC] Stat Oth 06/21/19 12:23 Ordered Resuscitation Status Routine Resus Stat 06/21/19 14:06 Ordered Medication Orders Enoxaparin Sodium (Lovenox) 40 mg SUBCUT Q24H ILA Last Admin: 06/21/19 15:24 Dose: 40 mg Nitroglycerin (Nitrostat) 0.4 mg SL Q5M PRN PRN Reason: Chest Pain Last Admin: 06/21/19 12:53 Dose: 0.4 mg Admin: 06/21/19 12:48 Dose: 0.4 mg Nystatin (Nystatin Crm) 0 gm TOP TID ILA Last Admin: 06/21/19 16:33 Dose: 1 applic Sodium Chloride (Saline Flush) 10 ml FLUSH ASDIRECTED PRN PRN Reason: Keep Vein Open Last Admin: 06/21/19 12:47 Dose: 10 ml Sodium Chloride (Saline Flush) 2.5 ml FLUSH ASDIRECTED PRN PRN Reason: Keep Vein Open Last Admin: 06/21/19 12:47 Dose: 2.5 ml
[2019-06-21] MEDS ORDERED: Enoxaparin 40 MG/0.4 ML Syringe SUBCUT SCH (14:15)
[2019-06-21 14:33] LABS: HEMOGLOBIN A1C 5.5 % (4.5-6.2)
[2019-06-21] MEDS ORDERED: FLU Vacc QS2019-20(6MOS+)/PF 60 MCG/0.5 ML SYRINGE IM ONE (16:15)
[2019-06-21] MEDS: Nystatin Crm 30 GM Tube TOP SCH ×2 (16:33→21:24)
[2019-06-22] MEDS: Nystatin Crm 30 GM Tube TOP SCH (05:38)
[2019-06-22 07:53] VITALS: BP 130/69; PULSE 67
--- NOTE | 2019-06-22 08:50 | PCM.DCSUM1 ---
<Inge Delaney M - Last Filed: 06/22/19 09:07> Discharge Summary - Hospital Course Brief History: This 48 year old female with pmh of hepatitis C, hx of recreational drug abuse, and epilepsy presented to the ED with concerns of chest pain. She reports this pain started a couple days ago. She reports the pain is in her R shoulder, L shoulder and upper back and neck. She reports it is throbbing in nature, worsens with movement and deep breath. She denies nausea or vomiting. No palpitations. She was at rest when the pain started initially, and worsens with activity. She reports skin rash in between her breasts, that she has put calamine on which seems to helps. She reports hot flashes that start abruptly and go away quickly. She denies abdominal pain. No urinary concerns or bowel concerns. No focal neurological deficits. She reports knee pain as well, especially with walking. She reports she has been cleaning carpets recently. She denies recreational drug use now. No alcohol use. Smokes 1 1/2 ppd. She reports a sister of CAD at age 37. She reports not taking any medication for seizures for 20+ years and no reoccurrence of seizures. In the ED labwork WNL. Glucose mildly elevated, Troponin negative. EKG SR with no acute ischemic changes. CXR negative. She was treated with Nitro x 2 in ED, which helped pain the hypotension was noted. She was given NS x 1 L along with ASA. She will be admitted for atypical chest pain. PCP, Dr Corey. Diagnosis: Stroke: No - Discharge Data Discharge Date: 06/22/19 Discharge Disposition: Home, Self-Care 01 Condition: Good - Referral to Home Health Primary Care Physician: PCP Unknown - Discharge Diagnosis/Problem(s) (1) History of epilepsy SNOMED Code(s): 654020375 ICD Code: Z86.69 - PERSONAL HISTORY OF DIS OF THE NERVOUS SYS AND SENSE ORGANS Status: Acute (2) Family history of early CAD SNOMED Code(s): 667913545 ICD Code: Z82.49 - FAMILY HX OF ISCHEM HEART DIS AND OTH DIS OF THE CIRC SYS Status: Acute (3) Tobacco abuse SNOMED Code(s): 694403418 ICD Code: Z72.0 - TOBACCO USE Status: Acute (4) Tobacco abuse counseling SNOMED Code(s): 292326510, 392809982, 771709960 ICD Code: Z71.6 - TOBACCO ABUSE COUNSELING Status: Acute (5) Chest pain, rule out acute myocardial infarction SNOMED Code(s): 82606062 ICD Code: R07.9 - CHEST PAIN, UNSPECIFIED Status: Acute - Patient Instructions Diet: Heart Healthy Diet Activity: No Strenuous Activities (until after stress test) Showering/Bathing: May Shower Notify Provider of: Fever, Increased Pain, Swelling and Redness, Drainage, Nausea and/or Vomiting - Discharge Plan *PRESCRIPTION DRUG MONITORING PROGRAM REVIEWED*: Not Applicable *COPY OF PRESCRIPTION DRUG MONITORING REPORT IN PATIENT BESSY: Not Applicable Home Medications: Home Meds . [No Known Home Meds] 11/25/16 [History] Oxygen Therapy Mode: Room Air Patient Handouts: Fat and Cholesterol Restricted Eating Plan, DASH Eating Plan , Nonspecific Chest Pain, [id number], Steps to Quit Smoking Referrals: [facility] [Outside] Sophia Corey DO [Physician] - 06/30/19 9:45 am (follow up in 1 week) - Discharge Summary/Plan Comment DC Time >30 min.: No Discharge Summary/Plan Comment: Admitting diagnoses: Atypical chest pain Discharge diagnoses: Atypical chest pain, likely musculoskeletal Other PMH Hepatitis C Tobacco abuse Hx recreational drug abuse Epilepsy Katt was admitted secondary to atyical chest pain that presented to both shoulders across chest and upper back. Pain was reproducible to papation of shoulder and back. She was recently scrubbing carpets, no other injury or trauma. Due to family history of early CAD and she was monitored overnight and ACS was ruled out. Troponins negative, EKG revealed no changes. She has remained pain free. BP has remained stable. A1c 5.5. Lipids slightly elevated with LDL 120 and HDL 66, Triglycerides 168 and total cholesterol 215. She was counseled on DASH diet and tobacco cessation, she isn't quite ready to quit completely but reports she is starting to cut back. She will be set up for outpatient stress test. She will also be set up with PCP for follow in 1 week. She will be discharged home today, she is to return to ED or clinic if concerns should arise. - General Info Date of Service: 06/22/19 Admission Dx/Problem (Free Text: Admission Diagnosis/Problem Admission Diagnosis/Problem Chest pain, rule out acute myocardial infarction I have seen and examined the patient independently of Gabbie Delaney CNP. I have discussed the case with her. I have reviewed and agree with the assessment and plan as outlined very her for this patient. Please see orders. Subjective Update: reports she is doing well this morning, "I'm ready to get out of here today." No further chest pain. Functional Status: Reports: Pain Controlled, Tolerating Diet, Ambulating - Review of Systems General: Reports: No Symptoms HEENT: Reports: No Symptoms Pulmonary: Reports: No Symptoms. Denies: Shortness of Breath Cardiovascular: Reports: No Symptoms. Denies: Chest Pain Gastrointestinal: Reports: No Symptoms. Denies: Abdominal Pain, Nausea, Vomiting Psychiatric: Reports: No Symptoms - Patient Data Vitals - Most Recent: Last Vital Signs Temp 96.0 F 06/22/19 07:52 Pulse 67 06/22/19 07:52 Resp 17 06/22/19 07:52 BP 130/69 06/22/19 07:52 Pulse Ox 98 06/22/19 07:52 Weight - Most Recent: 68.039 kg I&O - Last 24 hours: Intake & Output 06/21/19 06/22/19 06/22/19 22:59 06:59 14:59 Intake Total 207 1100 Output Total 200 1200 Balance 7 -100 Lab Results - Last 24 hrs: Laboratory Results - last 24 hr 06/21/19 06/21/19 06/21/19 Range/Units 12:20 12:20 12:20 WBC 7.43 (4.0-11.0) K/uL RBC 4.99 (4.30-5.90) M/uL Hgb 14.8 (12.0-16.0) g/dL Hct 44.0 (36.0-46.0) % MCV 88.2 (80.0-98.0) fL MCH 29.7 (27.0-32.0) pg MCHC 33.6 (31.0-37.0) g/dL RDW Std Deviation 43.0 (28.0-62.0) fl RDW Coeff of Omid 13 (11.0-15.0) % Plt Count 345 (150-400) K/uL MPV 10.30 (7.40-12.00) fL Neut % (Auto) 49.4 (48.0-80.0) % Lymph % (Auto) 34.7 (16.0-40.0) % Woodruff % (Auto) 10.1 (0.0-15.0) % Eos % (Auto) 5.5 (0.0-7.0) % Baso % (Auto) 0.3 (0.0-1.5) % Neut # (Auto) 3.7 (1.4-5.7) K/uL Lymph # (Auto) 2.6 H (0.6-2.4) K/uL Woodruff # (Auto) 0.8 (0.0-0.8) K/uL Eos # (Auto) 0.4 (0.0-0.7) K/uL Baso # (Auto) 0.0 (0.0-0.1) K/uL Nucleated RBC % 0.0 /100WBC Nucleated RBCs # 0 K/uL Sodium 138 (136-145) mmol/L Potassium 4.3 (3.5-5.1) mmol/L Chloride 102 (98-107) mmol/L Carbon Dioxide 26.0 (21.0-32.0) mmol/L BUN 19 H (7.0-18.0) mg/dL Creatinine 0.7 (0.6-1.0) mg/dL Est Cr Clr Drug Dosing 86.72 mL/min Estimated GFR (MDRD) > 60.0 ml/min Glucose 129 H (74-106) mg/dL Hemoglobin A1c 5.5 (4.5-6.2) % Calcium 9.0 (8.5-10.1) mg/dL Total Bilirubin 0.4 (0.2-1.0) mg/dL AST 25 (15-37) IU/L ALT 53 (14-63) IU/L Alkaline Phosphatase 90 (46-116) U/L Troponin I < 0.050 (0.000-0.056) ng/mL Total Protein 7.9 (6.4-8.2) g/dL Albumin 3.6 (3.4-5.0) g/dL Globulin 4.3 H (2.6-4.0) g/dL Albumin/Globulin Ratio 0.8 L (0.9-1.6) Triglycerides (0-200) mg/dL Cholesterol (50-200) mg/dL LDL Cholesterol, Calc (60-180) mg/dL VLDL Cholesterol (5-55) mg/dL HDL Cholesterol (40-60) mg/dL Cholesterol/HDL Ratio (3.3-6.0) TSH 3rd Generation 2.50 (0.36-3.74) uIU/mL 06/21/19 06/22/19 06/22/19 Range/Units 18:19 00:19 05:48 WBC (4.0-11.0) K/uL RBC (4.30-5.90) M/uL Hgb (12.0-16.0) g/dL Hct (36.0-46.0) % MCV (80.0-98.0) fL MCH (27.0-32.0) pg MCHC (31.0-37.0) g/dL RDW Std Deviation (28.0-62.0) fl RDW Coeff of Omid (11.0-15.0) % Plt Count (150-400) K/uL MPV (7.40-12.00) fL Neut % (Auto) (48.0-80.0) % Lymph % (Auto) (16.0-40.0) % Woodruff % (Auto) (0.0-15.0) % Eos % (Auto) (0.0-7.0) % Baso % (Auto) (0.0-1.5) % Neut # (Auto) (1.4-5.7) K/uL Lymph # (Auto) (0.6-2.4) K/uL Woodruff # (Auto) (0.0-0.8) K/uL Eos # (Auto) (0.0-0.7) K/uL Baso # (Auto) (0.0-0.1) K/uL Nucleated RBC % /100WBC Nucleated RBCs # K/uL Sodium (136-145) mmol/L Potassium (3.5-5.1) mmol/L Chloride (98-107) mmol/L Carbon Dioxide (21.0-32.0) mmol/L BUN (7.0-18.0) mg/dL Creatinine (0.6-1.0) mg/dL Est Cr Clr Drug Dosing mL/min Estimated GFR (MDRD) ml/min Glucose (74-106) mg/dL Hemoglobin A1c (4.5-6.2) % Calcium (8.5-10.1) mg/dL Total Bilirubin (0.2-1.0) mg/dL AST (15-37) IU/L ALT (14-63) IU/L Alkaline Phosphatase (46-116) U/L Troponin I < 0.050 < 0.050 (0.000-0.056) ng/mL Total Protein (6.4-8.2) g/dL Albumin (3.4-5.0) g/dL Globulin (2.6-4.0) g/dL Albumin/Globulin Ratio (0.9-1.6) Triglycerides 168 (0-200) mg/dL Cholesterol 215 H (50-200) mg/dL LDL Cholesterol, Calc 120 (60-180) mg/dL VLDL Cholesterol 33 (5-55) mg/dL HDL Cholesterol 61 H (40-60) mg/dL Cholesterol/HDL Ratio 3.5 (3.3-6.0) TSH 3rd Generation (0.36-3.74) uIU/mL Med Orders - Current: Current Medications Enoxaparin Sodium (Lovenox) 40 mg SUBCUT Q24H [facility] Last Admin: 06/21/19 15:24 Dose: 40 mg Nitroglycerin (Nitrostat) 0.4 mg SL Q5M PRN PRN Reason: Chest Pain Last Admin: 06/21/19 12:53 Dose: 0.4 mg Nystatin (Nystatin Crm) 0 gm TOP TID [facility] Last Admin: 06/22/19 05:38 Dose: 1 applic Sodium Chloride (Saline Flush) 10 ml FLUSH ASDIRECTED PRN PRN Reason: Keep Vein Open Last Admin: 06/21/19 12:47 Dose: 10 ml Sodium Chloride (Saline Flush) 2.5 ml FLUSH ASDIRECTED PRN PRN Reason: Keep Vein Open Last Admin: 06/21/19 12:47 Dose: 2.5 ml Discontinued Medications Aspirin (Aspirin) 324 mg PO ONETIME ONE Stop: 06/21/19 12:24 Last Admin: 06/21/19 12:46 Dose: 324 mg Al Hydroxide/Mg Hydroxide 15 (ml/ Lidocaine HCl 5 ml) 0 ml PO ONETIME ONE Stop: 06/21/19 14:07 Last Admin: 06/21/19 15:23 Dose: 1 each Sodium Chloride (Normal Saline) 1,000 mls @ 125 mls/hr IV STAT ONE Stop: 06/21/19 20:30 Last Admin: 06/21/19 12:49 Dose: 125 mls/hr Pantoprazole Sodium 40 mg/ (Sodium Chloride) 10 mls @ 300 mls/hr IV ONETIME ONE Stop: 06/21/19 14:07 Last Admin: 06/21/19 15:22 Dose: 300 mls/hr Influenza Virus Vaccine (Pharmacy To Dose - Influenza Vaccine) 1 each IM ONETIME ONE Stop: 06/21/19 15:57 Influenza Virus Vaccine (Fluzone Quad [id number] Syringe) 60 mcg IM .ONCE ONE Stop: 06/21/19 16:16 Ketorolac Tromethamine (Toradol) 30 mg IVPUSH ONETIME ONE Stop: 06/21/19 13:03 Last Admin: 06/21/19 13:39 Dose: 30 mg Morphine Sulfate (Morphine) 2 mg IVPUSH ONETIME ONE Stop: 06/21/19 13:51 Last Admin: 06/21/19 14:05 Dose: 2 mg <Leeroy Lujan - Last Filed: 06/22/19 11:49> Discharge Summary - Hospital Course HPI Initial Comments: I have seen and examined the patient independently of Gabbie Delaney CNP. I have discussed the case with her. I have reviewed and agree with the assessment and plan as outlined very her for this patient. Please see orders. - Referral to Home Health Primary Care Physician: PCP Unknown - Patient Data Vitals - Most Recent: Last Vital Signs Temp 35.6 C 06/22/19 07:52 Pulse 67 06/22/19 07:52 Resp 17 06/22/19 07:52 BP 130/69 06/22/19 07:52 Pulse Ox 98 06/22/19 07:52 I&O - Last 24 hours: Intake & Output 06/21/19 06/22/19 06/22/19 22:59 06:59 14:59 Intake Total 207 1100 100 Output Total 200 1200 200 Balance 7 -100 -100 Lab Results - Last 24 hrs: Laboratory Results - last 24 hr 06/21/19 06/21/19 06/21/19 Range/Units 12:20 12:20 12:20 WBC 7.43 (4.0-11.0) K/uL RBC 4.99 (4.30-5.90) M/uL Hgb 14.8 (12.0-16.0) g/dL Hct 44.0 (36.0-46.0) % MCV 88.2 (80.0-98.0) fL MCH 29.7 (27.0-32.0) pg MCHC 33.6 (31.0-37.0) g/dL RDW Std Deviation 43.0 (28.0-62.0) fl RDW Coeff of Omid 13 (11.0-15.0) % Plt Count 345 (150-400) K/uL MPV 10.30 (7.40-12.00) fL Neut % (Auto) 49.4 (48.0-80.0) % Lymph % (Auto) 34.7 (16.0-40.0) % Woodruff % (Auto) 10.1 (0.0-15.0) % Eos % (Auto) 5.5 (0.0-7.0) % Baso % (Auto) 0.3 (0.0-1.5) % Neut # (Auto) 3.7 (1.4-5.7) K/uL Lymph # (Auto) 2.6 H (0.6-2.4) K/uL Woodruff # (Auto) 0.8 (0.0-0.8) K/uL Eos # (Auto) 0.4 (0.0-0.7) K/uL Baso # (Auto) 0.0 (0.0-0.1) K/uL Nucleated RBC % 0.0 /100WBC Nucleated RBCs # 0 K/uL Sodium 138 (136-145) mmol/L Potassium 4.3 (3.5-5.1) mmol/L Chloride 102 (98-107) mmol/L Carbon Dioxide 26.0 (21.0-32.0) mmol/L BUN 19 H (7.0-18.0) mg/dL Creatinine 0.7 (0.6-1.0) mg/dL Est Cr Clr Drug Dosing 86.72 mL/min Estimated GFR (MDRD) > 60.0 ml/min Glucose 129 H (74-106) mg/dL Hemoglobin A1c 5.5 (4.5-6.2) % Calcium 9.0 (8.5-10.1) mg/dL Total Bilirubin 0.4 (0.2-1.0) mg/dL AST 25 (15-37) IU/L ALT 53 (14-63) IU/L Alkaline Phosphatase 90 (46-116) U/L Troponin I < 0.050 (0.000-0.056) ng/mL Total Protein 7.9 (6.4-8.2) g/dL Albumin 3.6 (3.4-5.0) g/dL Globulin 4.3 H (2.6-4.0) g/dL Albumin/Globulin Ratio 0.8 L (0.9-1.6) Triglycerides (0-200) mg/dL Cholesterol (50-200) mg/dL LDL Cholesterol, Calc (60-180) mg/dL VLDL Cholesterol (5-55) mg/dL HDL Cholesterol (40-60) mg/dL Cholesterol/HDL Ratio (3.3-6.0) TSH 3rd Generation 2.50 (0.36-3.74) uIU/mL 06/21/19 06/22/19 06/22/19 Range/Units 18:19 00:19 05:48 WBC (4.0-11.0) K/uL RBC (4.30-5.90) M/uL Hgb (12.0-16.0) g/dL Hct (36.0-46.0) % MCV (80.0-98.0) fL MCH (27.0-32.0) pg MCHC (31.0-37.0) g/dL RDW Std Deviation (28.0-62.0) fl RDW Coeff of Omid (11.0-15.0) % Plt Count (150-400) K/uL MPV (7.40-12.00) fL Neut % (Auto) (48.0-80.0) % Lymph % (Auto) (16.0-40.0) % Woodruff % (Auto) (0.0-15.0) % Eos % (Auto) (0.0-7.0) % Baso % (Auto) (0.0-1.5) % Neut # (Auto) (1.4-5.7) K/uL Lymph # (Auto) (0.6-2.4) K/uL Woodruff # (Auto) (0.0-0.8) K/uL Eos # (Auto) (0.0-0.7) K/uL Baso # (Auto) (0.0-0.1) K/uL Nucleated RBC % /100WBC Nucleated RBCs # K/uL Sodium (136-145) mmol/L Potassium (3.5-5.1) mmol/L Chloride (98-107) mmol/L Carbon Dioxide (21.0-32.0) mmol/L BUN (7.0-18.0) mg/dL Creatinine (0.6-1.0) mg/dL Est Cr Clr Drug Dosing mL/min Estimated GFR (MDRD) ml/min Glucose (74-106) mg/dL Hemoglobin A1c (4.5-6.2) % Calcium (8.5-10.1) mg/dL Total Bilirubin (0.2-1.0) mg/dL AST (15-37) IU/L ALT (14-63) IU/L Alkaline Phosphatase (46-116) U/L Troponin I < 0.050 < 0.050 (0.000-0.056) ng/mL Total Protein (6.4-8.2) g/dL Albumin (3.4-5.0) g/dL Globulin (2.6-4.0) g/dL Albumin/Globulin Ratio (0.9-1.6) Triglycerides 168 (0-200) mg/dL Cholesterol 215 H (50-200) mg/dL LDL Cholesterol, Calc 120 (60-180) mg/dL VLDL Cholesterol 33 (5-55) mg/dL HDL Cholesterol 61 H (40-60) mg/dL Cholesterol/HDL Ratio 3.5 (3.3-6.0) TSH 3rd Generation (0.36-3.74) uIU/mL Med Orders - Current: Current Medications Discontinued Medications Aspirin (Aspirin) 324 mg PO ONETIME ONE Stop: 06/21/19 12:24 Last Admin: 06/21/19 12:46 Dose: 324 mg Al Hydroxide/Mg Hydroxide 15 (ml/ Lidocaine HCl 5 ml) 0 ml PO ONETIME ONE Stop: 06/21/19 14:07 Last Admin: 06/21/19 15:23 Dose: 1 each Enoxaparin Sodium (Lovenox) 40 mg SUBCUT Q24H [facility] Last Admin: 06/21/19 15:24 Dose: 40 mg Sodium Chloride (Normal Saline) 1,000 mls @ 125 mls/hr IV STAT ONE Stop: 06/21/19 20:30 Last Admin: 06/21/19 12:49 Dose: 125 mls/hr Pantoprazole Sodium 40 mg/ (Sodium Chloride) 10 mls @ 300 mls/hr IV ONETIME ONE Stop: 06/21/19 14:07 Last Admin: 06/21/19 15:22 Dose: 300 mls/hr Influenza Virus Vaccine (Pharmacy To Dose - Influenza Vaccine) 1 each IM ONETIME ONE Stop: 06/21/19 15:57 Influenza Virus Vaccine (Fluzone Quad [id number] Syringe) 60 mcg IM .ONCE ONE Stop: 06/21/19 16:16 Last Admin: 06/22/19 09:25 Dose: 60 mcg Ketorolac Tromethamine (Toradol) 30 mg IVPUSH ONETIME ONE Stop: 06/21/19 13:03 Last Admin: 06/21/19 13:39 Dose: 30 mg Morphine Sulfate (Morphine) 2 mg IVPUSH ONETIME ONE Stop: 06/21/19 13:51 Last Admin: 06/21/19 14:05 Dose: 2 mg Nitroglycerin (Nitrostat) 0.4 mg SL Q5M PRN PRN Reason: Chest Pain Last Admin: 06/21/19 12:53 Dose: 0.4 mg Nystatin (Nystatin Crm) 0 gm TOP TID [facility] Last Admin: 06/22/19 05:38 Dose: 1 applic Sodium Chloride (Saline Flush) 10 ml FLUSH ASDIRECTED PRN PRN Reason: Keep Vein Open Last Admin: 06/21/19 12:47 Dose: 10 ml Sodium Chloride (Saline Flush) 2.5 ml FLUSH ASDIRECTED PRN PRN Reason: Keep Vein Open Last Admin: 06/21/19 12:47 Dose: 2.5 ml
== END 2019-06-22 09:50 | disposition home or self-care (01) ==
LOC: MW.ED 12:20 → MW.MS 13:57
PROVIDERS: ADMIT Internal Medicine; ATTEND Internal Medicine
DX: R07.89 Other chest pain (principal); I25.10 Atherosclerotic heart disease of native coronary artery without angina pectoris; E78.00 Pure hypercholesterolemia, unspecified; F17.210 Nicotine dependence, cigarettes, uncomplicated; Z86.69 Personal history of other diseases of the nervous system and sense organs; Z82.49 Family history of ischemic heart disease and other diseases of the circulatory system; Z71.6 Tobacco abuse counseling; Z88.0 Allergy status to penicillin; Z88.5 Allergy status to narcotic agent; Z91.040 Latex allergy status
CPT/HCPCS: 36415; 71045; 80053; 80061; 83036; 84443; 84484; 85025; 90471; 90686; 93005; 96361; 96372; 96374; 96375; 99285; A9270; C9113; G0378; J1650; J1885; J2270; J7040; J7050; G0008

== ENCOUNTER 2019-12-20 17:20 | Emergency (ER) | payer MEDICAID, OTHER ==
--- NOTE | 2019-12-20 17:41 | EDM.PDOC ---
ED HPI GENERAL MEDICAL PROBLEM - General Chief Complaint: Skin Complaint Stated Complaint: FEVER 99, RASH ON HANDS/ARMS Time Seen by Provider: 12/20/19 17:41 Source of Information: Reports: Patient History Limitations: Reports: No Limitations - History of Present Illness INITIAL COMMENTS - FREE TEXT/NARRATIVE: HISTORY AND PHYSICAL: History of present illness: Patient is a 49-year-old female presents to the ED With complaint of a rash. Patient states she has had an itchy rash on her hands, top of her feet, and chest and neck for the past 5-6 days. She denies any new detergents. lotions, medications, etc. She states she had a temp of 99F at the door today when she was checking in her boyfriend, temperature in ED is 97.5F without any intervention. She otherwise denies fevers or chills. Review of systems: As per history of present illness and below otherwise all systems reviewed and negative. Past medical history: As per history of present illness and as reviewed below otherwise noncontributory. Surgical history: As per history of present illness and as reviewed below otherwise noncontributory. Social history: No reported history of drug or alcohol abuse. Family history: As per history of present illness and as reviewed below otherwise noncontributory. Physical exam: General: Patient sitting comfortably in no acute distress and nontoxic appearing HEENT: Atraumatic, normocephalic, pupils reactive, negative for conjunctival pallor or scleral icterus, mucous membranes moist, throat clear, neck supple, nontender, trachea midline. No meningeal signs. Lungs: Clear to auscultation, breath sounds equal bilaterally, chest nontender. Skin: Dry scaly skin on the hands. No rash appreciated on the chest or neck. Extremities: Atraumatic, negative for cords or calf pain. Neurovascular unremarkable. Neuro: Awake, alert, oriented. Cranial nerves II through XII unremarkable. Cerebellum unremarkable. Motor and sensory unremarkable throughout. Exam nonfocal. Notes: Diagnostics: none Therapeutics: none Prescriptions: medrol dosepak Impression: Dermatitis Plan: Take medication as instructed Follow up with primary care provider Return to ED as needed as discussed Definitive disposition and diagnosis as appropriate pending reevaluation and review of above. Lower Back Pain Score (Numeric/FACES): 6 - Related Data Allergies Allergy/AdvReac Type Severity Reaction Status Date / Time amoxicillin Allergy Rash Verified 12/20/19 17:34 hydrocodone Allergy Rash Verified 12/20/19 17:34 Latex, Natural Rubber Allergy Rash Verified 12/20/19 17:34 Home Meds: Home Meds methylPREDNISolone [Medrol] 4 mg PO ASDIRECTED #1 tab.ds.pk 12/20/19 [Rx] Past Medical History - Past Health History Medical/Surgical History: Denies Medical/Surgical History Cardiovascular History: Reports: None. Denies: Afib, Blood Clots/VTE/DVT, CAD, High Cholesterol, Hypertension Respiratory History: Reports: None. Denies: Asthma, COPD, SOB Gastrointestinal History: Reports: None. Denies: GERD, GI Bleed Genitourinary History: Reports: None [employer] History: Reports: Neurological History: Reports: Seizure Other Neuro History: no seizures for over 20 years, took self off meds 20 years ago Endocrine/Metabolic History: Reports: None. Denies: Diabetes, Type II, Hypothyroidism Hematologic History: Reports: Anemia, Iron Deficiency - Infectious Disease History Infectious Disease History: Reports: Hepatitis C - Past Surgical History HEENT Surgical History: Reports: Tonsillectomy Female Surgical History: Reports: Hysterectomy Social & Family History - Family History Family Medical History: Noncontributory Cardiac: Reports: CAD Respiratory: Reports: COPD Musculoskeletal: Reports: RA Neurological: Reports: Seizure - Caffeine Use Caffeine Use: Reports: Coffee, Soda - Living Situation & Occupation Living situation: Reports: Single ED ROS GENERAL - Review of Systems Review Of Systems: Comprehensive ROS is negative, except as noted in HPI. ED EXAM, SKIN/RASH Exam: See Below (see dictation) Course - Vital Signs Last Recorded V/S: Last Vital Signs Temp 97.5 F 12/20/19 17:35 Pulse 78 12/20/19 17:35 Resp 18 12/20/19 17:35 BP 151/92 H 12/20/19 17:35 Pulse Ox 97 12/20/19 17:35 Departure - Departure Time of Disposition: 17:50 Disposition: Home, Self-Care 01 Condition: Good Clinical Impression: Dermatitis - Discharge Information Prescriptions: methylPREDNISolone [Medrol] 4 mg PO ASDIRECTED #1 tab.ds.pk Referrals: PCP,None [Primary Care Provider] - Forms: ED Department Discharge Additional Instructions: The following information is given to patients seen in the emergency department who are being discharged to home. This information is to outline your options for follow-up care. We provide all patients seen in our emergency department with a follow-up referral. The need for follow-up, as well as the timing and circumstances, are variable depending upon the specifics of your emergency department visit. If you don't have a primary care physician on staff, we will provide you with a referral. We always advise you to contact your personal physician following an emergency department visit to inform them of the circumstance of the visit and for follow-up with them and/or the need for any referrals to a consulting specialist. The emergency department will also refer you to a specialist when appropriate. This referral assures that you have the opportunity for follow-up care with a specialist. All of these measure are taken in an effort to provide you with optimal care, which includes your follow-up. Under all circumstances we always encourage you to contact your private physician who remains a resource for coordinating your care. When calling for follow-up care, please make the office aware that this follow-up is from your recent emergency room visit. If for any reason you are refused follow-up, please contact the [facility] Emergency Department at and asked to speak to the emergency department charge nurse. [facility] [address] [place] [id number] [id number] Take medication as instructed Follow up with primary care provider Return to ED as needed as discussed Sepsis Event Note - Focused Exam Vital Signs: Vital Signs Temp Pulse Resp BP Pulse Ox 12/20/19 17:35 97.5 F 78 18 151/92 H 97 Date Exam was Performed: 12/20/19 Time Exam was Performed: 17:47
[2019-12-20 18:07] VITALS: BP 159/74; PULSE 90
== END 2019-12-20 18:08 | disposition home or self-care (01) ==
LOC: MW.ED 17:20
DX: L30.9 Dermatitis, unspecified (principal); Z88.5 Allergy status to narcotic agent; Z88.1 Allergy status to other antibiotic agents; Z91.040 Latex allergy status
CPT/HCPCS: 99282; 99283

== ENCOUNTER 2020-03-07 20:53 | Emergency (ER) | payer SELFPAY ==
[2020-03-07] MEDS ORDERED: Sodium Chloride 0.9% 1,000 ML IV ONE (21:03)
[2020-03-07] MEDS ORDERED: Ketorolac 15 MG/ML SDV IVPUSH ONE (21:03)
[2020-03-07] MEDS ORDERED: Sodium Chloride 0.9% 10 ML Syringe FLUSH PRN (21:03)
[2020-03-07] MEDS ORDERED: Sodium Chloride 0.9% 2.5 ML Syringe FLUSH PRN (21:03)
--- NOTE | 2020-03-07 21:08 | EDM.PDOC ---
ED HPI GENERAL MEDICAL PROBLEM - General Chief Complaint: Genitourinary Problem Stated Complaint: KIDNEY PAIN Time Seen by Provider: 03/07/20 20:57 - History of Present Illness INITIAL COMMENTS - FREE TEXT/NARRATIVE: History of present illness: 49-year-old female presenting with "kidney pain " -further clarified as bilateral flank/lower back pain which patient reports is been ongoing for a year but worsened over the last few days. She has been using heating pads in the her area where it hurts and today she noticed blistering over the low back in an area where she used a heating pad. Denies nausea or vomiting. No diarrhea. She does report that ever since she had her hysterectomy 2 years ago she has felt bloated and when she has a bowel movement she feels that she has never truly evacuated all her stool. No fevers or chills. No chest pain or difficulty breathing. No other symptoms. Review of systems: As per history of present illness and below otherwise all systems reviewed and negative. Past medical history: As per history of present illness and as reviewed below otherwise noncontributory. Surgical history: As per history of present illness and as reviewed below otherwise noncontributory. Hysterectomy Social history: No reported history of drug or alcohol abuse. Tobacco daily Family history: As per history of present illness and as reviewed below otherwise noncontributory. Physical exam: GEN: no acute distress, well appearing HEENT: Atraumatic, normocephalic, mucous membranes moist, Neck: supple, nontender, trachea midline. Lungs: No respiratory distress. Heart: RRR Abdomen: Soft, nondistended, nontender. Back: Mild low CVA tenderness and low back tenderness bilaterally. No midline tenderness. Over the left flank area there is an area of erythema, consistent with abrasion/excoriation with 2 areas of blistering, clear fluid inside Extremities: Atraumatic. Neurovascularly intact. Neuro: Awake, alert, oriented. Neuro Exam nonfocal. Skin: warm, dry, 2 blisters over the left flank area as described above Diagnostics: [] Therapeutics: [] MDM: Impression: [] Plan: [] Definitive disposition and diagnosis as appropriate pending reevaluation and review of above. - Related Data Allergies Allergy/AdvReac Type Severity Reaction Status Date / Time amoxicillin Allergy Rash Verified 12/20/19 17:34 hydrocodone Allergy Rash Verified 12/20/19 17:34 Latex, Natural Rubber Allergy Rash Verified 12/20/19 17:34 Home Meds: Home Meds methylPREDNISolone [Medrol] 4 mg PO ASDIRECTED #1 tab.ds.pk 12/20/19 [Rx] Ibuprofen 600 mg PO Q8H #30 tablet 03/07/20 [Rx] methylPREDNISolone [Medrol Dose Pack] 4 mg PO ASDIRECTED #1 dospk 03/07/20 [Rx] Past Medical History - Past Health History Medical/Surgical History: Denies Medical/Surgical History Cardiovascular History: Reports: None. Denies: Afib, Blood Clots/VTE/DVT, CAD, High Cholesterol, Hypertension Respiratory History: Reports: None. Denies: Asthma, COPD, SOB Gastrointestinal History: Reports: None. 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 Denies: Diabetes, Type II, Hypothyroidism Hematologic History: Reports: Anemia, Iron Deficiency Immunologic History: Reports: None Oncologic (Cancer) History: Reports: None Dermatologic History: Reports: None - Infectious Disease History Infectious Disease History: Reports: Hepatitis C - Past Surgical History HEENT Surgical History: Reports: Tonsillectomy Female Surgical History: Reports: Hysterectomy Social & Family History - Family History Family Medical History: Noncontributory Cardiac: Reports: CAD Respiratory: Reports: COPD Musculoskeletal: Reports: RA Neurological: Reports: Seizure - Caffeine Use Caffeine Use: Reports: Coffee, Soda - Living Situation & Occupation Living situation: Reports: Single ED ROS GENERAL - Review of Systems Review Of Systems: See Below (See dictation) ED EXAM, RENAL/ - Physical Exam Exam: See Below (See dictation) Course - Orders/Labs/Meds Orders: Active Orders 24 hr Category Date Time Status Sodium Chloride 0.9% [Saline Flush] Med 03/07/20 21:03 Active 10 ml FLUSH ASDIRECTED PRN Sodium Chloride 0.9% [Saline Flush] Med 03/07/20 21:03 Active 2.5 ml FLUSH ASDIRECTED PRN Saline Lock Insert [OM.PC] Stat Oth 03/07/20 21:03 Ordered Medication Orders Sodium Chloride (Saline Flush) 10 ml FLUSH ASDIRECTED PRN PRN Reason: Keep Vein Open Sodium Chloride (Saline Flush) 2.5 ml FLUSH ASDIRECTED PRN PRN Reason: Keep Vein Open Labs: Laboratory Tests 03/07/20 03/07/20 03/07/20 Range/Units 21:05 21:15 21:15 WBC 11.09 H (4.0-11.0) K/uL RBC 4.63 (4.30-5.90) M/uL Hgb 13.5 (12.0-16.0) g/dL Hct 40.7 (36.0-46.0) % MCV 87.9 (80.0-98.0) fL MCH 29.2 (27.0-32.0) pg MCHC 33.2 (31.0-37.0) g/dL RDW Std Deviation 43.3 (28.0-62.0) fl RDW Coeff of Omid 14 (11.0-15.0) % Plt Count 354 (150-400) K/uL MPV 10.30 (7.40-12.00) fL Neut % (Auto) 56.7 (48.0-80.0) % Lymph % (Auto) 28.9 (16.0-40.0) % Weakley % (Auto) 8.5 (0.0-15.0) % Eos % (Auto) 5.5 (0.0-7.0) % Baso % (Auto) 0.4 (0.0-1.5) % Neut # (Auto) 6.3 H (1.4-5.7) K/uL Lymph # (Auto) 3.2 H (0.6-2.4) K/uL Weakley # (Auto) 0.9 H (0.0-0.8) K/uL Eos # (Auto) 0.6 (0.0-0.7) K/uL Baso # (Auto) 0.0 (0.0-0.1) K/uL Nucleated RBC % 0.0 /100WBC Nucleated RBCs # 0 K/uL Sodium 140 (136-145) mmol/L Potassium 4.1 (3.5-5.1) mmol/L Chloride 106 (98-107) mmol/L Carbon Dioxide 26.2 (21.0-32.0) mmol/L BUN 22 H (7.0-18.0) mg/dL Creatinine 1.1 H (0.6-1.0) mg/dL Est Cr Clr Drug Dosing TNP Estimated GFR (MDRD) 53.2 ml/min Glucose 98 (74-106) mg/dL Calcium 8.5 (8.5-10.1) mg/dL Total Bilirubin 0.4 (0.2-1.0) mg/dL AST 25 (15-37) IU/L ALT 53 (14-63) IU/L Alkaline Phosphatase 101 (46-116) U/L Total Protein 7.3 (6.4-8.2) g/dL Albumin 3.6 (3.4-5.0) g/dL Globulin 3.7 (2.6-4.0) g/dL Albumin/Globulin Ratio 1.0 (0.9-1.6) Urine Color YELLOW Urine Appearance CLEAR Urine pH 5.5 (5.0-8.0) Ur Specific Sen[place] >= 1.030 (1.001-1.035) Urine Protein NEGATIVE (NEGATIVE) mg/dL Urine Glucose (UA) NEGATIVE (NEGATIVE) mg/dL Urine Ketones NEGATIVE (NEGATIVE) mg/dL Urine Occult Blood SMALL H (NEGATIVE) Urine Nitrite NEGATIVE (NEGATIVE) Urine Bilirubin NEGATIVE (NEGATIVE) Urine Urobilinogen 1.0 (<2.0) EU/dL Ur Leukocyte Esterase NEGATIVE (NEGATIVE) Urine RBC 0-2 (0-2/HPF) Urine WBC 2-3 (0-5/HPF) Ur Epithelial Cells RARE (NONE-FEW) Amorphous Sediment FEW (NEGATIVE) Urine Bacteria FEW (NEGATIVE) Urine Mucus FEW (NONE-MOD) Meds: Medications Generic Name Dose Route Start Last Admin Trade Name Freq PRN Reason Stop Dose Admin Sodium Chloride 10 ml 03/07/20 21:03 Saline Flush FLUSH ASDIRECTED PRN Keep Vein Open Sodium Chloride 2.5 ml 03/07/20 21:03 Saline Flush FLUSH ASDIRECTED PRN Keep Vein Open Discontinued Medications Generic Name Dose Route Start Last Admin Trade Name Freq PRN Reason Stop Dose Admin Sodium Chloride 1,000 mls @ 999 mls/hr 03/07/20 21:03 03/07/20 21:00 Normal Saline IV 03/07/20 22:03 999 mls/hr .Bolus ONE Administration Ketorolac Tromethamine 15 mg 03/07/20 21:03 03/07/20 22:08 Toradol IVPUSH 03/07/20 21:04 15 mg ONETIME ONE Administration - Re-Assessments/Exams Free Text/Narrative Re-Assessment/Exam: 03/07/20 21:42 Patient is feeling better. Discussed results available at this time including labs and CT scan findings. Suspect that her pain is more related to a musculoskeletal issue than renal or abdominal process. No acute abdominal findings on CT scan to account for her symptoms. Discussed with patient plan for Medrol Dosepak and plan to refer to orthopedics. Discussed the slight creatinine elevation with the patient and discussed recommendation to increase p.o. fluid intake, possibly dehydration related. Departure - Departure Time of Disposition: 22:44 Disposition: Home, Self-Care 01 Clinical Impression: Lumbar back pain - Discharge Information Prescriptions: Ibuprofen 600 mg PO Q8H #30 tablet methylPREDNISolone [Medrol Dose Pack] 4 mg PO ASDIRECTED #1 dospk Instructions: Radicular Pain, Acute Back Pain, Adult, Back Injury Prevention, [id number], What You Need to Know About Chronic Back Pain, Back Exercises, [id number], Pain Medicine Instructions, [id number] Referrals: PCP,None [Primary Care Provider] - Forms: ED Department Discharge Additional Instructions: The following information is given to patients seen in the emergency department who are being discharged to home. This information is to outline your options for follow-up care. We provide all patients seen in our emergency department with a follow-up referral. The need for follow-up, as well as the timing and circumstances, are variable depending upon the specifics of your emergency department visit. If you don't have a primary care physician on staff, we will provide you with a referral. We always advise you to contact your personal physician following an emergency department visit to inform them of the circumstance of the visit and for follow-up with them and/or the need for any referrals to a consulting specialist. The emergency department will also refer you to a specialist when appropriate. This referral assures that you have the opportunity for follow-up care with a specialist. All of these measure are taken in an effort to provide you with optimal care, which includes your follow-up. Under all circumstances we always encourage you to contact your private physician who remains a resource for coordinating your care. When calling for follow-up care, please make the office aware that this follow-up is from your recent emergency room visit. If for any reason you are refused follow-up, please contact the [facility] Emergency Department at and asked to speak to the emergency department charge nurse. [facility] [address] [place] [address] [facility] [address] [place] [address] [facility] [address] [place] [address], [address] [place] [address] - My Orders Last 24 Hours: My Active Orders 03/07/20 21:03 Sodium Chloride 0.9% [Saline Flush] 10 ml FLUSH ASDIRECTED PRN Sodium Chloride 0.9% [Saline Flush] 2.5 ml FLUSH ASDIRECTED PRN Saline Lock Insert [OM.PC] Stat - Assessment/Plan Last 24 Hours: My Active Orders 03/07/20 21:03 Sodium Chloride 0.9% [Saline Flush] 10 ml FLUSH ASDIRECTED PRN Sodium Chloride 0.9% [Saline Flush] 2.5 ml FLUSH ASDIRECTED PRN Saline Lock Insert [OM.PC] Stat
[2020-03-07 21:45] LABS: BLOOD UREA NITROGEN,BUN 22 mg/dL (7.0-18.0); CARBON DIOXIDE,CO2 26.2 mmol/L (21.0-32.0); CHLORIDE,CL 106 mmol/L (98-107); GLUCOSE RANDOM 98 mg/dL (74-106); POTASSIUM,K 4.1 mmol/L (3.5-5.1); SODIUM,NA 140 mmol/L (136-145)
--- NOTE | 2020-03-07 21:57 | CT ---
CT abdomen and pelvis Technique: Multiple axial sections were obtained from above the dome of the diaphragm inferiorly through the pubic symphysis. Intravenous and oral contrast not utilized. Findings: Kidneys show no abnormal calcifications. No ureteral dilatation is seen. No ureteral stone is seen. Noncontrast appearance of the liver shows no discrete abnormality. Spleen appears within normal limits. Adrenal glands show no nodule. Pancreas shows no discrete abnormality. Gallbladder is contracted. Aorta shows no aneurysm. Mild atherosclerotic calcification is seen. Small fat containing umbilical hernia is noted. No pelvic mass or adenopathy is seen. No free fluid or inflammatory change is identified. Appendix is seen which is normal in size. Bone window settings were reviewed which shows disc space narrowing and vacuum phenomena at L5-S1. Degenerative apophyseal change is seen within the lower lumbar spine. No acute osseous finding is appreciated. Impression: 1. Nonacute findings as described above. 2. Nothing acute is seen on noncontrast CT study of the abdomen and pelvis. Diagnostic code #2 This report was dictated in MDT
[2020-03-08 05:27] VITALS: BP 134/79; PULSE 89
== END 2020-03-07 23:01 | disposition home or self-care (01) ==
LOC: MW.ED 20:53
DX: S30.821A Blister (nonthermal) of abdominal wall, initial encounter (principal); M54.5 Low back pain; Z88.1 Allergy status to other antibiotic agents; Z88.5 Allergy status to narcotic agent; Z91.040 Latex allergy status; X58.XXXA Exposure to other specified factors, initial encounter
CPT/HCPCS: 36415; 74176; 80053; 81001; 85025; 96374; 99284; J1885; J7030; 99283

== ENCOUNTER 2020-09-12 12:39 | Emergency (ER) | payer MEDICAID, OTHER ==
--- NOTE | 2020-09-12 13:10 | EDM.PDOC ---
ED HPI GENERAL MEDICAL PROBLEM - General Chief Complaint: General Stated Complaint: BODY ACHES Time Seen by Provider: 09/12/20 12:43 Source of Information: Reports: Patient History Limitations: Reports: No Limitations - History of Present Illness INITIAL COMMENTS - FREE TEXT/NARRATIVE: Presents reporting headache and body aches for the last 3 days. She has also been having trouble sleeping. No fever, cough, shortness of breath, sore throat, diarrhea, nausea, vomiting or loss of taste or smell. She has been eating and drinking fine. She smokes and uses marijuana at times. Her live-in boyfriend is currently hospitalized for COVID. She has a history of epilepsy although she has not had a seizure for over 25 years. She took herself off her medication a number of years ago when she was . Except for some low back pain she is otherwise healthy. Generalized Pain Score (Numeric/FACES): 7 - Related Data Allergies Allergy/AdvReac Type Severity Reaction Status Date / Time amoxicillin Allergy Rash Verified 09/12/20 12:43 hydrocodone Allergy Rash Verified 09/12/20 12:43 Latex, Natural Rubber Allergy Rash Verified 09/12/20 12:43 Home Meds: Home Meds . 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: Neurological History: Reports: Seizure Other Neuro History: no seizures for over 20 years, took self off meds 20 years ago Psychiatric History: Reports: None Endocrine/Metabolic History: Reports: None Hematologic History: Reports: Anemia, Iron Deficiency Immunologic History: Reports: None Oncologic (Cancer) History: Reports: None Dermatologic History: Reports: None - Infectious Disease History Infectious Disease History: Reports: Chicken Pox, Hepatitis C, Measles - Past Surgical History Head Surgeries/Procedures: Reports: None HEENT Surgical History: Reports: Tonsillectomy GI Surgical History: Reports: Other (See Below) Other GI Surgeries/Procedures: laparoscopy Female Surgical History: Reports: Hysterectomy Social & Family History - Family History Family Medical History: No Pertinent Family History Cardiac: Reports: CAD Respiratory: Reports: COPD Musculoskeletal: Reports: RA Neurological: Reports: Seizure - Tobacco Use Tobacco Use Status *Q: Current Every Day Tobacco User Years of Tobacco use: 25 Packs/Tins Daily: 0.5 - Caffeine Use Caffeine Use: Reports: Coffee - Recreational Drug Use Recreational Drug Use: Yes Drug Use in Last 12 Months: Yes Recreational Drug Type: Reports: Marijuana/Hashish Recreational Drug Use Frequency: Socially - Living Situation & Occupation Living situation: Reports: Single ED ROS GENERAL - Review of Systems Review Of Systems: Comprehensive ROS is negative, except as noted in HPI. ED EXAM, GENERAL - Physical Exam Exam: See Below Exam Limited By: No Limitations General Appearance: Alert, No Apparent Distress Ears: Normal External Exam, Normal TMs Nose: Normal Inspection Throat/Mouth: Normal Inspection, Normal Oropharynx Head: Atraumatic, Normocephalic Neck: Normal Inspection. No: Lymphadenopathy (L), Lymphadenopathy (R) Respiratory/Chest: No Respiratory Distress, Lungs Clear, Normal Breath Sounds Cardiovascular: Regular Rate, Rhythm, No Edema GI/Abdominal: Soft, Non-Tender, No Distention Neurological: Alert, Oriented Psychiatric: Normal Affect, Normal Mood Skin Exam: Warm, Dry, Intact, Normal Color, No Rash Lymphatic: No Adenopathy Course - Vital Signs Last Recorded V/S: Last Vital Signs Temp 36.7 C 09/12/20 12:43 Pulse 90 09/12/20 12:43 Resp 16 09/12/20 12:43 BP 151/88 H 09/12/20 12:43 Pulse Ox 96 09/12/20 12:43 - Orders/Labs/Meds Labs: Laboratory Tests 09/12/20 Range/Units 13:04 SARS-CoV-2 RNA (BARNEY) POSITIVE H (NEGATIVE) Departure - Departure Time of Disposition: 14:12 Disposition: Home, Self-Care 01 Condition: Good Clinical Impression: COVID-19 - Discharge Information Referrals: PCP,Not In Area [Primary Care Provider] - [facility] [Outside] [facility] [Outside] Forms: ED Department Discharge Additional Instructions: The following information is given to patients seen in the emergency department who are being discharged to home. This information is to outline your options f or follow-up care. We provide all patients seen in our emergency department with a follow-up referral. The need for follow-up, as well as the timing and circumstances, are variable depending upon the specifics of your emergency department visit. If you don't have a primary care physician on staff, we will provide you with a referral. We always advise you to contact your personal physician following an emergency department visit to inform them of the circumstance of the visit and for follow-up with them and/or the need for any referrals to a consulting specialist. The emergency department will also refer you to a specialist when appropriate. This referral assures that you have the opportunity for follow-up care with a specialist. All of these measure are taken in an effort to provide you with optimal care, which includes your follow-up. Under all circumstances we always encourage you to contact your private physician who remains a resource for coordinating your care. When calling for follow-up care, please make the office aware that this follow-up is from your recent emergency room visit. If for any reason you are refused follow-up, please contact the [facility] Emergency Department at and asked to speak to the emergency department charge nurse. 1. Quarantine per [facility] guidelines. 2. Rink plenty of fluids and rest 3. Aleve 2 tabs a.m. and p.m. or ibuprofen 2-3 tabs 3 times daily as needed for aches and headache. 4. Turn for shortness of breath, vomiting and not keeping down oral fluids. Sepsis Event Note (ED) - Evaluation Sepsis Screening Result: No Definite Risk - Focused Exam Vital Signs: Vital Signs Temp Pulse Resp BP Pulse Ox 09/12/20 12:43 36.7 C 90 16 151/88 H 96
[2020-09-12 14:27] VITALS: BP 153/95; PULSE 85
== END 2020-09-12 14:27 | disposition home or self-care (01) ==
LOC: MW.ED 12:39
DX: U07.1 COVID-19 (principal); F17.210 Nicotine dependence, cigarettes, uncomplicated; Z88.0 Allergy status to penicillin; Z88.5 Allergy status to narcotic agent; Z91.040 Latex allergy status
CPT/HCPCS: 99283; U0002